=== PATIENT | female | born 1945 | race Caucasian/White ===

== ENCOUNTER 2017-02-23 13:32 | Inpatient (IN) | payer OTHER ==
[~2017-02-23] VITALS: Ht 157.5 cm; Wt 61.4 kg
[~2017-02-23 13:32] MED LIST: ATOR-24 PO; ATV5X PO; CHOL1TAB2 PO; CRF1 PO; FRC PO; LAMO100T16 PO; METR0.7514 PV
[2017-02-23] MEDS ORDERED: RISP2TAB21 PO (14:28)
[2017-02-23] MEDS ORDERED: ALBUT/IPRATROP 3MG/0.5MG NEB 3 ML VIAL INH STA (15:06)
--- NOTE | 2017-02-23 15:11 | EMERGENCY ROOM VISIT NOTE ---
History First contact with patient: 14:57 Chief Complaint: COUGH Stated Complaint: COUGHING UP BLOOD Nursing Triage Summary: Pt states dx with bronchitis last Tue., placed on mucinex, prednisone and doxy. Today started to cough up dark brown with blood. Pt states, "I cough so hard I feel like I'm going to pass out." History of Present Illness The patient is a 71 year old female who presents to the Emergency Room via private vehicle accompanied by her with complaints of "coughing up blood ". The patient states that she has had a persistent cough for the past 3 weeks. She states that it is becoming productive, and was seen Tuesday by her family doctor and diagnosed with bronchitis. She states that she was given Mucinex, doxycycline and prednisone and has been taking these as prescribed. She notes that her cough has diminished slightly, but now she is coughing up a brown like mucus with some streaks of blood. She states she called her family doctor and they referred her here for further evaluation and management. She states that she feels as though she can't take a deep breath when she coughs, and now has a burning/pain sensation in the substernal region with her cough. Review of Systems A complete 10-point Review of Systems was discussed with the patient, with pertinent positives and negatives listed in the History of Present Illness. All remaining Review of Systems questions can be considered negative unless otherwise specified. Past Medical/Surgical History Medical Problems: (1) Alonso's Esophagus (2) Bladder prolapse (3) Depressive Disorder Nec (4) Esophageal Reflux (5) Esophageal Stricture (6) Headache (7) Hemoptysis (8) Hypercholesteremia (9) Migraine Unspecified W/O Intractable Migraine (10) Mood disorder (11) Mood disorder (12) Viral URI (13) Von Willebrand disease Surgical Problems: (1) S/P hysterectomy Family History Cancer Diabetes mellitus Heart disease Hypertension Kidney disease Kidney stones Social History Smoking Status: Never Smoker Alcohol Use: occasionally Marital Status: Housing Status: lives with significant other Occupation Status: retired Current/Historical Medications Scheduled Acetamin/Butalbital/Caffeine (Fioricet), 1 TAB PO PRN UD Atorvastatin (Atorvastatin Calcium), 40 MG PO DAILY Doxycycline Hyclate (Vibramycin), 100 MG PO BID Guaifenesin-Codeine (Codeine/Guaifenesin 100-10 mg/5Ml), 1 DOSE PO PRN UD Mirtazapine (Remeron), 30 MG PO HS Pantoprazole Sodium (Protonix), 40 MG PO BID Prednisone (Prednisone), 10 MG PO TAPER UD Risperidone (Risperdal), 2 MG PO HS Sucralfate (Sucralfate), 1 GM PO ACHS Sumatriptan Succinate (Imitrex), 25 MG PO PRN Scheduled PRN Cyclobenzaprine Hcl (Flexeril), 10 MG PO HS PRN for Pain Physical Exam Vital Signs Date Time Temp Pulse Resp B/P (MAP) Pulse Ox O2 Delivery O2 Flow Rate FiO2 02/23/17 19:04 70 22 145/87 98 Room Air 02/23/17 17:50 71 16 128/77 97 Room Air 02/23/17 16:12 72 02/23/17 15:40 76 15 127/86 97 02/23/17 13:46 36.7 74 18 142/75 95 Room Air Physical Exam VITAL SIGNS - Vital signs and nursing notes were reviewed. Stable. GENERAL -71-year-old female appearing her stated age who is in no acute distress. Communicates well with provider and answers questions appropriately. SKIN - Without rashes. No petechial rashes. HEAD - NC/AT. EYES - PERRL with EOMI bilaterally. EARS - No deformities of external structures noted on gross examination bilaterally. NOSE - Midline and without cyanosis. No epistaxis or purulent drainage noted. Septum midline without deviation or septal hematoma noted. MOUTH/OROPHARYNX - Without perioral cyanosis. NECK - Neck with FROM. Supple to palpation. LUNGS - Chest wall symmetric without accessory muscle use, intercostals retractions, or central cyanosis. Normal vesicular breath sounds CTA B/L. No wheezes, rales, or rhonchi appreciated. CARDIAC - RRR with S1/S2. No murmur, rubs, or gallops appreciated. ABDOMEN - Abdominal contour normal without pulsations or visible masses. BS normoactive all four quadrants. No tenderness, palpable masses, hepatosplenomegaly, or ascites noted. EXTREMITIES - No clubbing or peripheral cyanosis. No pretibial edema present. + 5/5 strength noted in UE/LE bilaterally. NEUROLOGIC - Cranial nerves II through XII grossly intact. Sensory intact to light touch throughout. Patellar reflexes +2/4. PSYCH - A&O, and cooperates fully with examiner. Pt is very pleasant and interacts well with examiner. Medical Decision & Procedures ER Provider Diagnostic Interpretation: CHEST 2 VIEWS ROUTINE CLINICAL HISTORY: Cough dyspnea COMPARISON STUDY: 06/27/2014 FINDINGS: The bones soft tissues and hemidiaphragms are normal. The cardiomediastinal silhouette is normal. The lungs are clear. The pulmonary vasculature is normal. IMPRESSION: Negative chest. The above report was generated using voice recognition software. It may contain grammatical, syntax or spelling errors. Electronically signed by: Sarmad Castellanos M.D. 02/23/2017 5:13 PM Dictated Date/Time: 02/23/2017 5:12 PM (CHEST FOR PE) ANGIO WITH CLINICAL HISTORY: 71 years-old Female presenting with hemoptysis, anterior chest pain. TECHNIQUE: Multidetector CT angiography of the chest was performed after administration of intravenous contrast. 3-D volumetric and/or maximum intensity projection (MIP) images were subsequently reconstructed for review. IV contrast: 92 mL of Optiray 320. A dose lowering technique was used consistent with the principles of ALARA (as low as reasonably achievable). COMPARISON: 12/27/2011. CT DOSE (mGy.cm): The estimated cumulative dose is 300.64 mGycm. FINDINGS: [place] topogram: Unremarkable. Pulmonary vasculature: The study is adequate for assessment of the pulmonary vascular tree. No filling defect within the pulmonary arteries to suggest embolus. Main pulmonary artery is not enlarged. No flattening of the interventricular septum. No intracardiac intracardiac filling defect. No reflux of contrast into the hepatic veins. Remaining chest: On soft tissue windows, normal thyroid and thoracic inlet. No axillary, supraclavicular, hilar, or mediastinal lymphadenopathy. Normal aorta. Normal heart size. No pericardial or pleural effusion. Small hiatal hernia. On lung windows, minimal dependent changes likely atelectasis. Focal subtle groundglass opacity in a peribronchovascular distribution noted in the superior lingula (for example series 4 image 156). Airways patent. On bone windows, normal osseous structures. IMPRESSION: 1. No evidence of pulmonary embolus. 2. Subtle groundglass opacity in a peribronchovascular distribution in the lingula concerning for an infectious etiology/early pneumonia. Electronically signed by: Ricci Harrison M.D. 02/23/2017 6:32 PM Dictated Date/Time: 02/23/2017 6:26 PM Laboratory Results 02/23/17 15:20 Red Blood Count 4.96, Mean Corpuscular Volume 87.9, Mean Corpuscular Hemoglobin 30.0, Mean Corpuscular Hemoglobin Concent 34.2, Mean Platelet Volume 10.5, Neutrophils (%) (Auto) 79.9, Lymphocytes (%) (Auto) 15.0, Monocytes (%) (Auto) 3.3, Eosinophils (%) (Auto) 0.1, Basophils (%) (Auto) 0.2, Neutrophils # (Auto) 7.96, Lymphocytes # (Auto) 1.49, Monocytes # (Auto) 0.33, Eosinophils # (Auto) 0.01, Basophils # (Auto) 0.02 02/23/17 15:20 Test 02/23/17 15:20 White Blood Count 9.96 K/uL (4.8-10.8) Red Blood Count 4.96 M/uL (4.2-5.4) Hemoglobin 14.9 g/dL (12.0-16.0) Hematocrit 43.6 % (37-47) Mean Corpuscular Volume 87.9 fL (80-100) Mean Corpuscular Hemoglobin 30.0 pg (25-34) Mean Corpuscular Hemoglobin Concent 34.2 g/dl (32-36) Platelet Count 256 K/uL (130-400) Mean Platelet Volume 10.5 fL (7.4-10.4) Neutrophils (%) (Auto) 79.9 % Lymphocytes (%) (Auto) 15.0 % Monocytes (%) (Auto) 3.3 % Eosinophils (%) (Auto) 0.1 % Basophils (%) (Auto) 0.2 % Neutrophils # (Auto) 7.96 K/uL (1.4-6.5) Lymphocytes # (Auto) 1.49 K/uL (1.2-3.4) Monocytes # (Auto) 0.33 K/uL (0.11-0.59) Eosinophils # (Auto) 0.01 K/uL (0-0.5) Basophils # (Auto) 0.02 K/uL (0-0.2) RDW Standard Deviation 41.7 fL (36.4-46.3) RDW Coefficient of Variation 13.0 % (11.5-14.5) Immature Granulocyte % (Auto) 1.5 % Immature Granulocyte # (Auto) 0.15 K/uL (0.00-0.02) Prothrombin Time 10.6 SECONDS (9.0-12.0) Prothromb Time International Ratio 1.0 (0.9-1.1) Activated Partial Thromboplast Time 21.0 SECONDS (21.0-31.0) Partial Thromboplastin Ratio 0.8 Anion Gap 11.0 mmol/L (3-11) Est Creatinine Clear Calc Drug Dose 45.8 ml/min Estimated GFR () 66.6 Estimated GFR (Non- 57.4 BUN/Creatinine Ratio 26.0 (10-20) Calcium Level 9.8 mg/dl (8.5-10.1) Magnesium Level 2.1 mg/dl (1.8-2.4) Total Bilirubin 0.3 mg/dl (0.2-1) Aspartate Amino Transf (AST/SGOT) 18 U/L (15-37) Alanine Aminotransferase (ALT/SGPT) 43 U/L (12-78) Alkaline Phosphatase 86 U/L (45-117) Total Creatine Kinase 79 U/L (26-192) Creatine Kinase MB 2.0 ng/ml (0.5-3.6) Creatine Kinase MB Ratio 2.5 (0-3.0) Troponin I < 0.015 ng/ml (0-0.045) Total Protein 8.1 gm/dl (6.4-8.2) Albumin 4.3 gm/dl (3.4-5.0) Globulin 3.8 gm/dl (2.5-4.0) Albumin/Globulin Ratio 1.1 (0.9-2) Thyroid Stimulating Hormone (TSH) 0.692 uIu/ml (0.300-4.500) Medications Administered Medications (Trade) Dose Ordered Sig/[place]andler Route Start Time Stop Time Status Last Admin Dose Admin Albuterol/ Ipratropium (Duoneb) 3 ml NOW STAT INH 02/23/17 15:06 02/23/17 15:09 DC 02/23/17 15:54 3 ML Azithromycin 500 mg/Dextrose 255 ml @ 125 mls/hr NOW STAT IV 02/23/17 18:50 02/23/17 20:52 DC 02/23/17 19:32 125 MLS/HR Ceftriaxone Sodium (Rocephin Inj) 1 gm NOW STAT IV 02/23/17 18:50 02/23/17 18:52 DC 02/23/17 19:05 1 GM Acetaminophen/ Butalbital/ Caffeine (Fioricet Tab) 1 tab NOW STAT PO 02/23/17 19:35 02/23/17 19:36 DC 02/23/17 19:56 1 TAB Medical Decision Patient was seen and evaluated as above. She presents to us today with coughing up blood, and burning in the anterior chest. Bedside EKG is normal sinus rhythm, and was similar when compared with previous EKGs. Troponin was negative. Two-view chest is unremarkable. She was given a DuoNeb and was feeling better. No leukocytosis or anemia. Coags unremarkable. Patient's electrolytes are okay. BUN is high at 26. This is concerning in the setting of pneumonia. She is also over the age of 67. I did elect to obtain a CT scan of the patient's chest, secondary to her complaint of chronic cough for the past 3 weeks. This was obtained and revealed concerning [place] for pneumonia. Because the patient's age, high BUN, and felt outpatient on doxycycline with prednisone and Mucinex I do believe that inpatient management is warranted. Case was discussed with the attending physician, who also personally evaluated the patient. I then discussed the case with the hospitalist. Decision was made to give 1 g of Rocephin and 500 mg of azithromycin. Please refer to further documentation regarding the patient's stay. In evaluation treatment this patient following differential diagnoses were entertained: Pneumonia, influenza, PE, OR, among others. Medication Reconcilliation Current Medication List: was personally reviewed by al Blood Pressure Screening Patient's blood pressure: Elevated blood pressure Blood pressure disposition: Elevated BP felt to be situational Impression Primary Impression: Pneumonia Departure Information Dispostion Admitted as an inpatient Condition FAIR Referrals Remedios Kohli D.O. (PCP) Patient Instructions My [facility]
[2017-02-23] MEDS ORDERED: FRCT/ PO (15:22)
[2017-02-23] MEDS ORDERED: SUCR1TAB PO (15:22)
[2017-02-23] MEDS ORDERED: PRED10TA PO (15:22)
[2017-02-23] MEDS ORDERED: GUAI1SOL5 PO (15:22)
[2017-02-23] MEDS ORDERED: LPT40 PO (15:22)
[2017-02-23] MEDS ORDERED: MIRT30TA3 PO (15:22)
[2017-02-23] MEDS ORDERED: DOXY100C2 PO (15:22)
[2017-02-23 15:37] LABS: BASO % 0.2 %; BASO ABS # 0.02 K/uL (0-0.2); COMPLETE YES; EOS % 0.1 %; HEMATOCRIT 43.6 % (37-47); IG% 1.5 %; LYMPH ABS # 1.49 K/uL (1.2-3.4); MEAN CELL VOLUME 87.9 fL (80-100); MEAN CORPUSCULAR HGB CONC 34.2 g/dl (32-36); MEAN PLATELET VOLUME 10.5 fL (7.4-10.4); MONO % 3.3 %; NEUT % 79.9 %; PLATELET COUNT 256 K/uL (130-400); RED BLOOD COUNT 4.96 M/uL (4.2-5.4); WHITE BLOOD COUNT 9.96 K/uL (4.8-10.8)
[2017-02-23 15:54] LABS: ALT/SGPT 43 U/L (12-78); BLOOD UREA NITROGEN 26 mg/dl (7-18); CALCIUM 9.8 mg/dl (8.5-10.1); CARBON DIOXIDE 24 mmol/L (21-32); CHLORIDE 106 mmol/L (98-107); GLUCOSE 100 mg/dl (70-99); MAGNESIUM 2.1 mg/dl (1.8-2.4); POTASSIUM 3.5 mmol/L (3.5-5.1); SODIUM 141 mmol/L (136-145)
[2017-02-23 15:57] LABS: PARTIAL THROMBOPLASTIN RATIO 0.8; PROTHROMBIN TIME (PATIENT) 10.6 SECONDS (9.0-12.0)
[2017-02-23 16:04] LABS: ALB/GLOB RATIO 1.1 (0.9-2); ALKALINE PHOSPHATASE 86 U/L (45-117); AST/SGOT 18 U/L (15-37); CKMB/CK RATIO 2.5 (0-3.0); THYROID STIMULATING HORMONE 0.692 uIu/ml (0.300-4.500)
--- NOTE | 2017-02-23 16:14 | EMERGENCY ROOM VISIT NOTE ---
ED Visit Note First contact with patient: 14:57 HPI: cough and ?hemtoptysis with blood tinged sputum. PE: AFVSS, NAD NC/AT RRR, no murmurs Scant scattered wheezes. Abd soft NT/ND Ext: no edema, erythema Neuro: grossly intact Plan: CT shows "subtle groundglass opacity in a peribronchovascular distribution in the lingula concerning for an infectious etiology/early pneumonia." Admit. Likely pulm consultation. I reviewed the patient's past medical history, medications, and visit nursing notes. I discussed the case with the physician physician office assistant, examined the patient, and agree with the findings and plan as documented in the physician assistants note.
--- NOTE | 2017-02-23 17:14 | DIAGNOSTIC IMAGING REPORT ---
CHEST 2 VIEWS ROUTINE CLINICAL HISTORY: Cough dyspnea COMPARISON STUDY: 06/27/2014 FINDINGS: The bones soft tissues and hemidiaphragms are normal. The cardiomediastinal silhouette is normal. The lungs are clear. The pulmonary vasculature is normal. IMPRESSION: Negative chest. The above report was generated using voice recognition software. It may contain grammatical, syntax or spelling errors. Electronically signed by: Sarmad Castellanos M.D. 02/23/2017 5:13 PM Dictated Date/Time: 02/23/2017 5:12 PM
[2017-02-23] MEDS ORDERED: OPTIRAY 320 IV PRN (17:30)
[2017-02-23] MEDS ORDERED: SUMA25TA12 PO (18:22)
--- NOTE | 2017-02-23 18:34 | DIAGNOSTIC IMAGING REPORT ---
(CHEST FOR PE) ANGIO WITH CLINICAL HISTORY: 71 years-old Female presenting with hemoptysis, anterior chest pain. TECHNIQUE: Multidetector CT angiography of the chest was performed after administration of intravenous contrast. 3-D volumetric and/or maximum intensity projection (MIP) images were subsequently reconstructed for review. IV contrast: 92 mL of Optiray 320. A dose lowering technique was used consistent with the principles of ALARA (as low as reasonably achievable). COMPARISON: 12/27/2011. CT DOSE (mGy.cm): The estimated cumulative dose is 300.64 mGycm. FINDINGS: [employer] topogram: Unremarkable. Pulmonary vasculature: The study is adequate for assessment of the pulmonary vascular tree. No filling defect within the pulmonary arteries to suggest embolus. Main pulmonary artery is not enlarged. No flattening of the interventricular septum. No intracardiac intracardiac filling defect. No reflux of contrast into the hepatic veins. Remaining chest: On soft tissue windows, normal thyroid and thoracic inlet. No axillary, supraclavicular, hilar, or mediastinal lymphadenopathy. Normal aorta. Normal heart size. No pericardial or pleural effusion. Small hiatal hernia. On lung windows, minimal dependent changes likely atelectasis. Focal subtle groundglass opacity in a peribronchovascular distribution noted in the superior lingula (for example series 4 image 156). Airways patent. On bone windows, normal osseous structures. IMPRESSION: 1. No evidence of pulmonary embolus. 2. Subtle groundglass opacity in a peribronchovascular distribution in the lingula concerning for an infectious etiology/early pneumonia. Electronically signed by: Ricci Harrison M.D. 02/23/2017 6:32 PM Dictated Date/Time: 02/23/2017 6:26 PM
[2017-02-23] MEDS ORDERED: AZITHROMYCIN IV 500 MG in DEXTROSE 5% 250ML 250 ML IV STA (18:50)
[2017-02-23] MEDS ORDERED: CEFTRIAXONE SOD INJ 1 GM ADDVIAL IV STA (18:50)
[2017-02-23] MEDS ORDERED: AZITHROMYCIN 250 MG TAB ONE (19:00)
[2017-02-23] MEDS ORDERED: BUTALBITAL/ACETAMIN/CAFFEINE TAB PO STA (19:35)
[2017-02-23 20:39] LABS: HEMATOCRIT 38.7 % (37-47)
[2017-02-23] MEDS ORDERED: BENZONATATE 100MG CAP PO PRN (20:57)
[2017-02-23] MEDS ORDERED: RISPERIDONE 2 MG TAB PO SCH (21:00)
[2017-02-23] MEDS ORDERED: KETOROLAC TROMETHAMINE 15 MG/ML VIAL IV. PRN (21:00)
[2017-02-23] MEDS ORDERED: MIRTAZAPINE TAB 15 MG TAB PO SCH (21:00)
[2017-02-23] MEDS ORDERED: ONDANSETRON INJ 2 MG/ML 2 ML VIAL IV PRN (21:00)
[2017-02-23] MEDS ORDERED: LEVALBUTEROL/IPRATROPIUM NEB INH PRN (21:00)
[2017-02-23] MEDS ORDERED: ACETAMINOPHEN 325 MG TAB PO PRN (21:00)
[2017-02-23 21:07] VITALS: BP 147/92; PULSE 63; TEMP 36.7; O2SAT 99; Ht 157.5 cm; Wt 61.4 kg
[2017-02-23] MEDS ORDERED: CYCL10TA6 PO (21:16)
[2017-02-23] MEDS ORDERED: LEVALBUTEROL 1.25MG/0.5ML NEB INH STA (21:24)
[2017-02-23] MEDS ORDERED: IPRATROPIUM BROMIDE NEB SOLN 0.02% 2.5 ML VIAL INH STA (21:24)
[2017-02-23] MEDS ORDERED: LACTATED RINGER'S 1000ML 1,000 ML IV ONE (21:30)
[2017-02-23] MEDS ORDERED: METHYLPREDNISOLONE IV 40 MG in SYRINGE 0 ML IV ONE (21:30)
[2017-02-23] MEDS ORDERED: GUAIFENESIN 600 MG TABCR PO ONE (21:30)
[2017-02-23] MEDS ORDERED: LEVALBUTEROL 1.25MG/0.5ML NEB INH PRN (21:30)
[2017-02-23] MEDS ORDERED: BENZONATATE 100MG CAP PO ONE (21:30)
[2017-02-23] MEDS ORDERED: IPRATROPIUM BROMIDE NEB SOLN 0.02% 2.5 ML VIAL INH PRN (21:30)
[2017-02-23] MEDS ORDERED: DOXYCYCLINE HYCLATE 100 MG CAP PO SCH (21:30)
[2017-02-23] MEDS ORDERED: INFLUENZA ADMINISTRATION CHARGE ONE (21:45)
[2017-02-23] MEDS ORDERED: INFLUENZA VACCINE HIGH DOSE 65+ 0.5 ML SYR IM. ONE (21:45)
[2017-02-23] MEDS: PANTOprazole SOD 40 MG TAB PO SCH (21:55)
[2017-02-23] MEDS: SUCRALFATE 1 GM TAB PO SCH (21:56)
[2017-02-23] MEDS ORDERED: LORAZEPAM 0.5 MG TAB PO ONE (22:30)
[2017-02-23] MEDS ORDERED: PANT40TA PO (22:46)
[2017-02-23] MEDS ORDERED: LEVOFLOXACIN 750 MG TAB PO SCH (23:45)
[2017-02-23] MEDS ORDERED: LEVOFLOXACIN CONSULT ACTIVE PRN (23:45)
[2017-02-24] VITALS: BP 154/87; PULSE 63; TEMP 36.4; O2SAT 95
[2017-02-24 00:45] LABS: INFLUENZA A PCR Neg for Influ A (NEG); INFLUENZA B PCR Neg for Influ B (NEG)
[2017-02-24] MEDS: LEVALBUTEROL 1.25MG/0.5ML NEB INH SCH ×2 (01:42→07:01)
[2017-02-24] MEDS: IPRATROPIUM BROMIDE NEB SOLN 0.02% 2.5 ML VIAL INH SCH ×2 (01:43→07:01)
[2017-02-24 01:45] VITALS: PULSE 87; O2SAT 96
[2017-02-24] MEDS ORDERED: LEVALBUTEROL/IPRATROPIUM NEB INH SCH (03:00)
--- NOTE | 2017-02-24 05:52 | HISTORY & PHYSICAL EXAMINATION ---
DATE OF ADMISSION: 02/23/2017 PRIMARY CARE DOCTOR: Dr. Kohli. CHIEF COMPLAINT: Hemoptysis. HISTORY OF PRESENT ILLNESS: History obtained from the patient and records. Medical history is significant for anxiety, depression, GERD, history of Schatzki's ring, migraine. Recent confinement at [facility] was last 2013 for depression. In the last few weeks, the patient noted nasal congestion and cough symptoms, at some point wheezing, cough productive of junky sputum. Seen at PCP's office last week. Impression was complicated bronchitis. Patient prescribed prednisone, doxycycline and mucolytics. Some improvement in cough symptoms.. Today, the patient noted hemoptysis, mucous sputum with streaks of blood. Pleuritic chest pain w/ some shortness of breath. Denies aspiration. At the Emergency Room, the patient received ceftriaxone, azithromycin, nebs for possible pneumonia. MEDICAL HISTORY: As above SURGICAL HISTORY: She had hysterectomy, tubal ligation, tonsillectomy, adenectomy. Urologic procedures and knee surgery. HOME MEDICATIONS: Include, Fioricet, atorvastatin, Flexeril, doxycycline, Remeron, Protonix, prednisone, Risperdal , Imitrex. ALLERGIES: TO ASPIRIN. FAMILY HISTORY: There is a family history of heart disease. PERSONAL AND SOCIAL HISTORY: Nonsmoker, no chronic alcohol use. 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 REVIEW OF SYSTEMS: As per HPI, all other ROS negative. PHYSICAL EXAMINATION: VITAL SIGNS: Blood pressure was noted to be 128/70, pulse is 70, RR 18, temperature 36.8, sats 97 on room air. GENERAL: Noted to be comfortable, no respiratory distress. Looks younger for stated age. SKIN: Normal color. Dry HEENT: [place] palpebral conjunctivae. Dry mucosa. NECK: Supple. NT CHEST: Clear to auscultation. NT Cardiovascular : No JVD, Regular rate and rhythm. ABDOMEN: Soft. NT EXTREMITIES: No edema. NT NEUROLOGIC: Coherent, no gross focality. LABORATORY DATA: Hemoglobin was noted to be 14.9, hematocrit 40.6, white cell count 7.9, platelets 256. Sodium 140, potassium 3.5, chloride 106, CO2 24, BUN 26, creatinine 1, glucose was noted to be 100. Flu test was negative. IMAGING DATA: CTA showed subtle ground-glass opacity, peribronchovascular distribution in the lingula, possible early pneumonia. ASSESSMENT: 1. Hemoptysis secondary to bronchopneumonia failed outpatient treatment. Hemodynamically stable. Patient is not septic. 2. GERD, stable on medication. 3. Anxiety/mood disorder, stable on medications. PLAN: GMF Change Doxycycline to Levaquin nebs p.r.n. Solu-Medrol for 1 dose now then continue home prednisone taper. Antitussives when necessary Pulmonary consult if with recurrent hemoptysis. DVT prophylaxis. SCDs RE hemoptysis. Full code. MTDD
[2017-02-24] MEDS: SUCRALFATE 1 GM TAB PO SCH ×2 (06:34→11:16)
[2017-02-24 07:02] VITALS: PULSE 64; O2SAT 98
[2017-02-24 07:08] LABS: BASO % 0.1 %; BASO ABS # 0.01 K/uL (0-0.2); COMPLETE YES; HEMATOCRIT 39.3 % (37-47); IG% 1.3 %; LYMPH % 13.4 %; LYMPH ABS # 1.13 K/uL (1.2-3.4); MEAN CELL VOLUME 89.1 fL (80-100); MEAN CORPUSCULAR HEMOGLOBIN 29.5 pg (25-34); MEAN CORPUSCULAR HGB CONC 33.1 g/dl (32-36); MEAN PLATELET VOLUME 10.3 fL (7.4-10.4); MONO % 5.4 %; NEUT % 79.8 %; PLATELET COUNT 240 K/uL (130-400); RED BLOOD COUNT 4.41 M/uL (4.2-5.4); WHITE BLOOD COUNT 8.45 K/uL (4.8-10.8)
[2017-02-24 07:34] LABS: CREATININE 0.85 mg/dl (0.60-1.20)
[2017-02-24 07:44] VITALS: BP 120/76; PULSE 65; TEMP 36.5; O2SAT 100
[2017-02-24] MEDS ORDERED: ATORVASTATIN 40 MG TAB PO SCH (08:00)
[2017-02-24] MEDS: PANTOprazole SOD 40 MG TAB PO SCH (08:32)
[2017-02-24] MEDS ORDERED: GUAIFENESIN 600 MG TABCR PO SCH (09:00)
--- NOTE | 2017-02-24 09:00 | Clinical Documentation Query ---
Dr. RUELAS PETER : CLINICAL DOCUMENTATION QUERY Patient is a 71 year old female admitted for evaluation and treatment of hemoptysis. Failed outpatient treatment with Doxycycline and mucolytics. Therapeutic regimen altered to Levaquin, Solumedrol x 1, PRN nebs and antitussives. As appropriate, consider explicit documentation of the potential type(s) of pneumonia that antibiotic choice is based upon as this affects DRG assignment. Thank you. In your clinical opinion is this patient being managed for: ( ) Possible gram negative pneumonia ( ) Not Agree ( ) Other explanation of clinical findings (Please Explain) ( ) Unable to determine (Please Define) ( ) Need to Discuss The medical record reflects the following clinical findings, treatment, and risk factors. Clinical Indicators: As above Treatment: Therapeutic regimen altered to Levaquin, Solumedrol x 1, PRN nebs and antitussives Risk Factors: Recent antibiotic use Please clarify and document your clinical opinion in the progress notes and discharge summary. Terms such as "probable", "suspected", "likely", "questionable", "possible", or "still to be ruled out" are acceptable. IF IN AGREEMENT, YOU MUST DOCUMENT ABOVE DIAGNOSTIC STATEMENT IN DAILY PROGRESS NOTES AND DISCHARGE SUMMARY. This document is not part of the patient's record. Thank You, Eitan Liriano, IMANI [phone]
[2017-02-24 12:01] LABS: HEMATOCRIT 39.8 % (37-47)
[2017-02-24] MEDS ORDERED: LVQ750 PO (12:46)
[2017-02-24] MEDS ORDERED: LCTX PO (12:46)
--- NOTE | 2017-02-24 12:48 | Discharge Instructions ---
Discharge Instructions Date of Service Feb 24, 2017. Admission Reason for Admission: Hemoptysis Discharge Discharge Diagnosis / Problem: PNEUMONIA. Discharge Goals Goal(s): Decrease discomfort, Improve function Activity Recommendations Activity Limitations: resume your previous activity . Instructions / Follow-Up Instructions / Follow-Up FOLLOWUP WITH FAMILY DOCTOR Remedios Salomon ON Feb AT 10:55AM. REPORT TO ER FOR ANY WORSENING COUGH OR ANY CHANGE IN MEDICAL CONDITION Current Hospital Diet Patient's current hospital diet: Regular Diet Discharge Diet Recommended Diet: Regular Diet Pending Studies Studies pending at discharge: no Medical Emergencies . Who to Call and When: Medical Emergencies: If at any time you feel your situation is an emergency, please call 911 immediately. . Non-Emergent Contact Non-Emergency issues call your: Primary Care Provider . . "Provider Documentation" section prepared by Andres Humphrey. . VTE Core Measure Inpt VTE Proph given/why not?: SCD's
[2017-02-24 13:06] VITALS: BP 120/76; PULSE 65; TEMP 36.5; O2SAT 100
--- NOTE | 2017-02-24 20:12 | Progress Note ---
Internal Med Progress Note Date of Service: Feb 24, 2017. Provider Documentation: SUBJECTIVE: resting comfortably says feeling much better and want to go home cough much improved and has some yellow sputum and no blood in sputum anymore afebrile no sob or chest pain OBJECTIVE: Vital Signs-as noted below Exam: General-alert and awake. not in distress ENT-normal hearing Neck-no neck masses supple Lungs-cta b/l no wheezing or crackles Heart-s1 and s2 heard regular rate and rhythm no murmurs Abdomen-soft bowel sounds present non tender no distension Extremities-no erythema no edema Neuro-alert and awake moves extremities Lab data as noted below. ASSESSMENT & PLAN: 1. Hemoptysis secondary to bronchopneumonia failed outpatient treatment. started on Levaquin improving want to go home d/trisha on po Levaquin f/u with pcp. 2. GERD, stable on medication. 3. Anxiety/mood disorder, stable on medications discharged home Vital Signs: Date Time Temp Pulse Resp B/P (MAP) Pulse Ox O2 Delivery O2 Flow Rate FiO2 02/24/17 13:06 36.5 65 18 100 Room Air 02/24/17 08:30 Room Air 02/24/17 07:44 36.5 65 18 120/76 (91) 100 02/24/17 07:02 64 16 98 02/24/17 01:45 87 16 96 02/24/17 00:00 36.4 63 20 154/87 (109) 95 Room Air 02/24/17 00:00 Room Air 02/23/17 21:07 36.7 63 16 147/92 99 Room Air 02/23/17 20:36 67 23 152/78 95 Room Air 02/23/17 20:17 72 Lab Results: Results Past 24 Hours Test 02/23/17 20:33 02/23/17 22:00 02/24/17 06:52 02/24/17 11:51 Range/Units Hemoglobin 12.8 13.0 13.1 12.0-16.0 g/dL Hematocrit 38.7 39.3 39.8 37-47 % Influenza Type A (RT-PCR) Neg for Influ A NEG Influenza Type A Antigen Neg for Influ A NEG Influenza Type B Antigen Neg for Influ B NEG Influenza Type B (RT-PCR) Neg for Influ B NEG White Blood Count 8.45 4.8-10.8 K/uL Red Blood Count 4.41 4.2-5.4 M/uL Mean Corpuscular Volume 89.1 80-100 fL Mean Corpuscular Hemoglobin 29.5 25-34 pg Mean Corpuscular Hemoglobin Concent 33.1 32-36 g/dl Platelet Count 240 130-400 K/uL Mean Platelet Volume 10.3 7.4-10.4 fL Neutrophils (%) (Auto) 79.8 % Lymphocytes (%) (Auto) 13.4 % Monocytes (%) (Auto) 5.4 % Eosinophils (%) (Auto) 0.0 % Basophils (%) (Auto) 0.1 % Neutrophils # (Auto) 6.74 1.4-6.5 K/uL Lymphocytes # (Auto) 1.13 1.2-3.4 K/uL Monocytes # (Auto) 0.46 0.11-0.59 K/uL Eosinophils # (Auto) 0.00 0-0.5 K/uL Basophils # (Auto) 0.01 0-0.2 K/uL RDW Standard Deviation 42.8 36.4-46.3 fL RDW Coefficient of Variation 13.3 11.5-14.5 % Immature Granulocyte % (Auto) 1.3 % Immature Granulocyte # (Auto) 0.11 0.00-0.02 K/uL Creatinine 0.85 0.60-1.20 mg/dl Est Creatinine Clear Calc Drug Dose 53.9 ml/min Estimated GFR () 81.0 Estimated GFR (Non- 69.9
--- NOTE | 2017-02-24 20:21 | Discharge Summary ---
Discharge Summary Date of Service Feb 24, 2017. Discharge Summary Admission Date: Feb 23, 2017 at 19:48 Discharge Date: Feb 24, 2017 Discharge Disposition: Home Principal Diagnosis: PNEUMONIA Secondary Diagnoses/Problems: anxiety, depression, GERD, history of Schatzki's ring, migraine. Procedures: CTA CHEST: 1. No evidence of pulmonary embolus. 2. Subtle groundglass opacity in a peribronchovascular distribution in the lingula concerning for an infectious etiology/early pneumonia. Medication Reconciliation New Medications: Lactobacillus Acidophilus (Lactinex) Tab 2 TAB PO BID for 10 Days, TAB Levofloxacin (Levofloxacin) 750 Mg Tab 750 MG PO DAILY, #7 TAB Continued Medications: Acetamin/Butalbital/Caffeine (Fioricet) 1 Ea Tab 1 TAB PO PRN UD, TAB Atorvastatin (Atorvastatin Calcium) 40 Mg Tab 40 MG PO DAILY Cyclobenzaprine Hcl (Flexeril) 10 Mg Tab 10 MG PO HS PRN for Pain, #21 TAB PRN Guaifenesin-Codeine (Codeine/Guaifenesin 100-10 mg/5Ml) 1 Divya Divya 1 DOSE PO PRN UD Mirtazapine (Remeron) 30 Mg Tab 30 MG PO HS Pantoprazole Sodium (Protonix) 40 Mg Tab 40 MG PO BID, #30 TAB Prednisone (Prednisone) 10 Mg Tab 10 MG PO TAPER UD Risperidone (Risperdal) 2 Mg Tab 2 MG PO HS, TAB Sucralfate (Sucralfate) 1 Gm Tab 1 GM PO ACHS Sumatriptan Succinate (Imitrex) 25 Mg Tab 25 MG PO PRN, 0 Refills Discontinued Medications: Doxycycline Hyclate (Vibramycin) 100 Mg Cap 100 MG PO BID for 10 Days Admission Information HPI (per Admitting provider): History obtained from the patient and records. Medical history is significant for anxiety, depression, GERD, history of Schatzki's ring, migraine. Recent confinement at [facility] was last 2013 for depression. In the last few weeks, the patient noted nasal congestion and cough symptoms, at some point wheezing, cough productive of junky sputum. Seen at PCP's office last week. Impression was complicated bronchitis. Patient prescribed prednisone, doxycycline and mucolytics. Some improvement in cough symptoms.. Today, the patient noted hemoptysis, mucous sputum with streaks of blood. Pleuritic chest pain w/ some shortness of breath. Denies aspiration. At the Emergency Room, the patient received ceftriaxone, azithromycin, nebs for possible pneumonia. Physical Exam (per Admitting): VITAL SIGNS: Blood pressure was noted to be 128/70, pulse is 70, RR 18, temperature 36.8, sats 97 on room air. GENERAL: Noted to be comfortable, no respiratory distress. Looks younger for stated age. SKIN: Normal color. Dry HEENT: Howell palpebral conjunctivae. Dry mucosa. NECK: Supple. NT CHEST: Clear to auscultation. NT Cardiovascular : No JVD, Regular rate and rhythm. ABDOMEN: Soft. NT EXTREMITIES: No edema. NT NEUROLOGIC: Coherent, no gross focality. Hospital Course 1. Hemoptysis secondary to bronchopneumonia failed outpatient treatment. started on Levaquin improving want to go home d/trisha on po Levaquin f/u with pcp. 2. GERD, stable on medication. 3. Anxiety/mood disorder, stable on medications discharged home Total time spent on discharge = 35MINUTES This includes examination of the patient, discharge planning, medication reconciliation, and communication with other providers. Discharge Instructions Discharge Instructions Date of Service Feb 24, 2017. Admission Reason for Admission: Hemoptysis Discharge Discharge Diagnosis / Problem: PNEUMONIA. Discharge Goals Goal(s): Decrease discomfort, Improve function Activity Recommendations Activity Limitations: resume your previous activity . Instructions / Follow-Up Instructions / Follow-Up FOLLOWUP WITH FAMILY DOCTOR Remedios Salomon ON Feb AT 10:55AM. REPORT TO ER FOR ANY WORSENING COUGH OR ANY CHANGE IN MEDICAL CONDITION Current Hospital Diet Patient's current hospital diet: Regular Diet Discharge Diet Recommended Diet: Regular Diet Pending Studies Studies pending at discharge: no Medical Emergencies . Who to Call and When: Medical Emergencies: If at any time you feel your situation is an emergency, please call 911 immediately. . Non-Emergent Contact Non-Emergency issues call your: Primary Care Provider . . "Provider Documentation" section prepared by Andres Humphrey. . VTE Core Measure Inpt VTE Proph given/why not?: SCD's
[2017-02-24] MEDS ORDERED: LEVOFLOXACIN 750 MG TAB PO SCH (21:00)
== END 2017-02-24 13:51 | disposition home or self-care (01) | DRG 194 ==
LOC: C.EDB 13:33 → C.4E 19:48 → ENRESERV 20:26
PROVIDERS: ADMIT Internal Medicine; ATTEND Internal Medicine
DX: J18.0 Bronchopneumonia, unspecified organism (principal); R04.2 Hemoptysis; K21.9 Gastro-esophageal reflux disease without esophagitis; E78.00 Pure hypercholesterolemia, unspecified; F32.9 Major depressive disorder, single episode, unspecified; F41.9 Anxiety disorder, unspecified; Z90.710 Acquired absence of both cervix and uterus; Z80.9 Family history of malignant neoplasm, unspecified; Z83.3 Family history of diabetes mellitus; Z82.49 Family history of ischemic heart disease and other diseases of the circulatory system

== ENCOUNTER → 2017-09-30 | Outpatient (CLI) | payer OTHER ==
[~2017-09-30] MED LIST changes: -ATOR-24 PO; -ATV5X PO; -CHOL1TAB2 PO; -CRF1 PO; +CYCL10TA6 PO; -FRC PO; +FRCT/ PO; +GUAI1SOL5 PO; -LAMO100T16 PO; +LPT40 PO; +LVQ750 PO; -METR0.7514 PV; +MIRT30TA3 PO; +PANT40TA PO; +PRED10TA PO; +RISP2TAB21 PO; +SUCR1TAB PO; +SUMA25TA12 PO
--- NOTE | 2017-09-30 11:16 | DIAGNOSTIC IMAGING REPORT ---
GI SERIES W/AIR ROUTINE CLINICAL HISTORY: HERNIAthere is esophagus COMPARISON STUDY: None FLUOROSCOPY TIME: 1.7 minutes. FINDINGS: Patient initiates the swallowing function well. No evidence for aspiration. Esophagus is normal in course and caliber. Moderate esophageal spasm/air debility There is a hiatal hernia, variable in size at various times during the examination.. This is simple in configuration. There is moderate gastroesophageal reflux. Size and configuration stomach are normal. Duodenal bulb fills well and is negative for ulceration. IMPRESSION: 1. Moderate esophageal spasm/irritability. 2. Variable size simple hiatal hernia with moderate gastroesophageal reflux. 3. Remainder the study is negative. The above report was generated using voice recognition software. It may contain grammatical, syntax or spelling errors. Electronically signed by: Sarmad Castellanos M.D. 09/30/2017 11:15 AM Dictated Date/Time: 09/30/2017 11:13 AM
== END | disposition home or self-care (01) ==
LOC: C.RAD 10:33
PROVIDERS: ATTEND Surgery
DX: K22.70 Barrett's esophagus without dysplasia (principal)

== ENCOUNTER 2021-11-23 11:12 | Observation (INO) ==
--- NOTE | 2021-11-23 11:35 | Emergency Department Note ---
Impression & Plan Syncope, Acute confusion ED Provider Note NAME: SCOTTY FINN AGE: 76 SEX: F : 1945 ARRIVES VIA: Walk-In INFORMANT: Patient ED PROVIDER(S): Jaswinder Medina DO CHIEF COMPLAINT: fall HPI: Patient is a 76-year-old female with past medical history of mood disorder the presents the ER for 2 episodes of a fall last night around 6 PM. She notes she got up from the couch and does not remember what happened after this. She notes she was feeling a little lightheaded and everything went black. was downstairs about 20 seconds and notes that she was awake and talking appropriately. She then went into the kitchen and he put her on a chair. He turned his back and she fell off the chair. When he heard the thud he turned over and she was awake rolling on the ground. He denies her passing out the second time. She does not remember the second incidence either. She notes that she just feels a little fuzzy in her head. Denies any headache or change in vision. No chest pain or shortness of breath preceding or following these events. No belly pain nausea vomiting or diarrhea. She admits to pain in the right elbow and right humerus. Pain is worse in that right elbow. No other weakness or numbness. Pain is been present since the fall. Is worsened with movement and improves with rest. ROS: See above HPI for pertinent positives & negatives. A total of 10 systems reviewed and were otherwise negative. PAST MEDICAL HISTORY:See Below PAST SURGICAL HISTORY:See Below FAMILY HISTORY:See Below SOCIAL HISTORY:See Below HOME MEDICATIONS:See Below ALLERGIES:See Below VITALS:See Below PHYSICAL EXAMINATION: GENERAL: alert, well appearing, well nourished, no distress, non-toxic HEAD: normal cephalic, atraumatic EYE EXAM: normal conjunctiva, PERRL and EOM's grossly intact OROPHARYNX: no exudate, no erythema, lips, buccal mucosa, and tongue normal and mucous membranes are moist NECK: supple, no nuchal rigidity, no adenopathy, non-tender CHEST: stable to compression anteriorly and posteriorly But with tenderness throughout the right mid axillary region ribs 3 through 6 LUNGS: clear to auscultation. Normal chest wall mechanics HEART: no murmurs, S1 normal and S2 normal ABDOMEN: abdomen soft, non-tender, normo-active bowel sounds, no masses, no rebound or guarding. PELVIS: stable to compression anteriorly and posteriorly BACK: Back is symmetrical on inspection and there is no deformity, no midline tenderness, no CVA tenderness. UPPER EXTREMITIES: full active and passive range of motion of all joints without tenderness to palpation LOWER EXTREMITIES: full active and passive range of motion of all joints without tenderness to palpation NEURO EXAM: Normal sensorium, cranial nerves II-XII intact, normal speech, no gross weakness of arms, no weakness of legs. GCS: 15. No drift. [id number]-tjlo intact. MEDICAL DECISION MAKING: Patient is a 76-year-old female who presents ER for the boasting complaint. IV was established blood work was obtained.Labs show no significant leukocytosis or anemia. BMP with a slightly low calcium at 1.4. LFTs bilirubin were unremarkable. Troponin was negative. TSH was unremarkable. UA was clean. COVID was negative. X-rays show no acute fracture of the humerus and elbow. CTA of the head and neck as well as CT of the chest and cervical spine were unre markable. With the 2 episodes of syncope/confusion did discuss with hospitalist for observation. Triage Nursing notes reviewed. Limited review of prior medical records performed Vital Signs: reviewed and remarkable for no significant abnormalities Differential diagnosis: Differential diagnosis includes etiologies such as vasovagal event, infection, hypoglycemia, electrolyte abnormalities, cardiac sources, intracerebral event, toxicologic, neurologic, as well as others were entertained. ER treatment provided: See below Diagnostics interpreted by me: ECG: Sinus rhythm rate of 61 Normal axis No PVCs QTC 424 Cardiac Monitoring: An order was placed for continuous cardiac monitoring. The monitor shows a rate of 70 with sinus rhythm. Laboratory studies: As stated above and show below. Imaging studies: CT as well as angios of the head and neck and CT of the chest was negative X-rays of the arm showed no acute fractures Consultation(s): none Procedures: none Critical Care: None Past Med/Surg History Medical History Barretts esophagus Cystocele S/p repair Dyslipidemia Osteoporosis Surgical History S/P left knee arthroscopy S/P BELA (total abdominal hysterectomy) S/P tonsillectomy and adenoidectomy S/P tubal ligation Family History Father Cancer Mother Cancer Social History Smoking Status: Never smoker Hx Alcohol Use: Yes Alcohol Intake Frequency: 2-4 x/Month Preferred Language: Yoruba Feels Safe at Home: Yes Allergies Allergies Allergy/AdvReac Type Severity Reaction Status Date / Time aspirin AdvReac Intermediate Stomach Verified 04/10/21 01:08 problems and bleeding Home Meds Home Medications Medication Instructions Recorded Confirmed atorvastatin 40 mg tablet 40 mg PO HS 02/04/19 11/23/21 omeprazole 20 mg capsule,delayed 20 mg PO BIDM 02/04/19 11/23/21 release sumatriptan succinate 25 mg tablet 25 mg PO DIRECTED PRN 02/04/19 11/23/21 alprazolam 0.25 mg tablet 0.25 mg PO TID PRN 11/23/21 11/23/21 [id number]-qvbvxahm 1 tab PO Q6H PRN 11/23/21 11/23/21 50 mg-325 mg-40 mg tablet denosumab 60 mg/mL subcutaneous 60 mg SUBCUT Q6M 11/23/21 11/23/21 syringe (Prolia) epinephrine 0.3 mg/0.3 mL 0.3 mg IM UD PRN 11/23/21 11/23/21 injection, auto-injector trazodone 100 mg tablet 100 mg PO HS 11/23/21 11/23/21 Results & Data (ED) Vital Signs Vital Signs - 24 hr 11/23/21 11:14 11/23/21 12:16 11/23/21 13:03 Temperature 36.2 C L Temperature Source Oral Pulse Rate 71 71 57 L Pulse Rate from SpO2 Sensor Pulse Rhythm Regular Respiratory Rate 16 16 17 Blood Pressure 136/76 132/67 Blood Pressure Mean 96 88 Pulse Oximetry 96 96 98 Oxygen Delivery Method Room Air Sepsis Recent Fever Within 48 Hours No Sepsis New/Unexplained Change in Mental Status No Sepsis Action Taken by Nursing No Action Required 11/23/21 13:33 11/23/21 14:00 Temperature Temperature Source Pulse Rate 72 55 L Pulse Rate from SpO2 Sensor 72 56 L Pulse Rhythm Respiratory Rate 18 15 Blood Pressure 148/79 H 142/68 H Blood Pressure Mean 102 92 Pulse Oximetry 98 97 Oxygen Delivery Method Sepsis Recent Fever Within 48 Hours Sepsis New/Unexplained Change in Mental Status Sepsis Action Taken by Nursing Laboratory Data Result diagrams: 11/23/21 12:06 11/23/21 12:10 Lab Results 11/23/21 11/23/21 11/23/21 Range/Units 12:06 12:06 12:10 WBC 5.94 (4.8-10.8) K/uL RBC 4.20 (4.2-5.4) M/uL Hgb 12.9 (12.0-16.0) g/dL Hct 39.3 (37-47) % MCV 93.6 (80-100) fL MCH 30.7 (25-34) pg MCHC 32.8 (32-36) g/dL RDW Std Deviation 47.7 H (36.4-46.3) fL RDW Coeff of Carlos 13.8 (11.5-14.5) % Plt Count 214 (130-400) K/uL MPV 10.5 H (7.4-10.4) fL Immature Gran % (Auto) 0.0 % Neut % (Auto) 61.2 % Lymph % (Auto) 25.8 % [place] % (Auto) 10.8 % Eos % (Auto) 2.0 % Baso % (Auto) 0.2 % Neut # (Auto) 3.64 (1.4-6.5) K/uL Lymph # (Auto) 1.53 (1.2-3.4) K/uL [place] # (Auto) 0.64 H (0.11-0.59) K/uL Eos # (Auto) 0.12 (0-0.5) K/uL Baso # (Auto) 0.01 (0-0.2) K/uL Immature Gran # (Auto) 0.00 (0.00-0.02) K/uL Sodium 138 (136-145) mmol/L Potassium 4.6 (3.5-5.1) mmol/L Chloride 106 (98-107) mmol/L Carbon Dioxide 28 (21-32) mmol/L Anion Gap 4 (3-11) BUN 19 (6-23) mg/dl Creatinine 0.86 (0.6-1.2) mg/dl Est Cr Clr Drug Dosing 45.4 ml/min Est GFR ( Amer) 77.1 ml/min Est GFR (Non-Af Amer) 66.6 ml/min BUN/Creatinine Ratio 22.1 H (10-20) Glucose 92 (70-99(Fasting)) mg/dl Calcium 8.4 L (8.5-10.1) mg/dl Magnesium 2.1 (1.7-2.4) mg/dl Total Bilirubin 0.4 (0.2-1.0) mg/dl AST 24 (13-39) U/L ALT 24 (7-52) U/L Alkaline Phosphatase 46 (34-104) U/L Troponin I High Sens 5.3 (0-14) pg/ml Total Protein 6.3 (6.0-8.3) gm/dl Albumin 3.9 (3.4-5.0) gm/dl Globulin 2.4 L (2.5-4.0) gm/dl Albumin/Globulin Ratio 1.6 (0.9-2) TSH 1.350 (0.300-4.500) uIu/ml Urine Color Urine Appearance (Clear) Urine pH (4.5-7.5) Ur Specific Pierce (1.000-1.030) Urine Protein (Negative) Urine Glucose (UA) (Negative) Urine Ketones (Negative) Urine Blood (Negative) Urine Nitrite (Negative) Urine Bilirubin (Negative) Urine Urobilinogen (Negative) Ur Leukocyte Esterase (Negative) 11/23/21 Range/Units 14:30 WBC (4.8-10.8) K/uL RBC (4.2-5.4) M/uL Hgb (12.0-16.0) g/dL Hct (37-47) % MCV (80-100) fL MCH (25-34) pg MCHC (32-36) g/dL RDW Std Deviation (36.4-46.3) fL RDW Coeff of Carlos (11.5-14.5) % Plt Count (130-400) K/uL MPV (7.4-10.4) fL Immature Gran % (Auto) % Neut % (Auto) % Lymph % (Auto) % [place] % (Auto) % Eos % (Auto) % Baso % (Auto) % Neut # (Auto) (1.4-6.5) K/uL Lymph # (Auto) (1.2-3.4) K/uL [place] # (Auto) (0.11-0.59) K/uL Eos # (Auto) (0-0.5) K/uL Baso # (Auto) (0-0.2) K/uL Immature Gran # (Auto) (0.00-0.02) K/uL Sodium (136-145) mmol/L Potassium (3.5-5.1) mmol/L Chloride (98-107) mmol/L Carbon Dioxide (21-32) mmol/L Anion Gap (3-11) BUN (6-23) mg/dl Creatinine (0.6-1.2) mg/dl Est Cr Clr Drug Dosing ml/min Est GFR ( Amer) ml/min Est GFR (Non-Af Amer) ml/min BUN/Creatinine Ratio (10-20) Glucose (70-99(Fasting)) mg/dl Calcium (8.5-10.1) mg/dl Magnesium (1.7-2.4) mg/dl Total Bilirubin (0.2-1.0) mg/dl AST (13-39) U/L ALT (7-52) U/L Alkaline Phosphatase (34-104) U/L Troponin I High Sens (0-14) pg/ml Total Protein (6.0-8.3) gm/dl Albumin (3.4-5.0) gm/dl Globulin (2.5-4.0) gm/dl Albumin/Globulin Ratio (0.9-2) TSH (0.300-4.500) uIu/ml Urine Color Yellow Urine Appearance Clear (Clear) Urine pH 7.0 (4.5-7.5) Ur Specific Pierce 1.035 H (1.000-1.030) Urine Protein Negative (Negative) Urine Glucose (UA) Negative (Negative) Urine Ketones Negative (Negative) Urine Blood Negative (Negative) Urine Nitrite Negative (Negative) Urine Bilirubin Negative (Negative) Urine Urobilinogen Negative (Negative) Ur Leukocyte Esterase Negative (Negative) Administered Medications Discontinued Medications Sodium Chloride (Nss) 500 mls @ 999 mls/hr IV .Q31M GALA Stop: 11/23/21 12:15 Last Infusion: 11/23/21 13:00 Dose: 0 mls/hr Documented by: [id number] Admin: 11/23/21 12:11 Dose: 999 mls/hr Documented by: [id number] Acetaminophen (Ofirmev) 1,000 mg in 100 mls @ 400 mls/hr IV NOW STA Stop: 11/23/21 16:51 Last Admin: 11/23/21 17:20 Dose: 400 mls/hr Documented by: [id number] Ioversol (Optiray 320 125ml) 120 ml IV ONCE ONE Stop: 11/23/21 13:29 Last Admin: 11/23/21 13:29 Dose: 120 ml Documented by: [id number] Ondansetron HCl (Ondansetron Inj 2 Mg/Ml 2 Ml Vial) 4 mg IV NOW STA Stop: 11/23/21 16:38 Last Admin: 11/23/21 17:20 Dose: 4 mg Documented by: [id number] Imaging Data Radiologist's Impression: Cervical Spine CT 11/23/21 11:31 CT SCAN OF THE CERVICAL SPINE CLINICAL HISTORY: Syncope. Fall. COMPARISON STUDY: No priors. TECHNIQUE: CT scan of the cervical spine is performed from the skull base to the upper thoracic spine. Images are reviewed in the axial, sagittal, and coronal planes. IV contrast was not administered for this examination. A dose lowering technique was utilized adhering to the principles of ALARA. FINDINGS: Skeletal structures: The skeletal structures are osteopenic. There is no evidence of fracture or subluxation involving the cervical spine. Vertebral body height and alignment are maintained. There is straightening of the cervical lo rdosis with mild reversal centered at C4-C5. Small anterior osteophytes are seen throughout. The odontoid process and lateral masses are intact. The atlantoaxial articulation is preserved noting mild productive degenerative change. The spinous processes appear intact. There is minimal multilevel facet arthropathy. Intervertebral discs: There is moderate disc space narrowing at C4-C5, C5-C6, and C6-C7. Central canal: Posterior disc osteophyte complexes at C4-C5, C5-C6, and C6-C7 likely contribute to acquired compromise of the central canal. Soft tissues: The prevertebral and paraspinous soft tissues are within normal limits. Calvarium: The visualized calvarium at the skull base appears intact. Brain parenchyma: Partially visualized brain parenchyma at the skull base is within normal limits. Sinuses and mastoids: The visualized paranasal sinuses are clear. There is trace right mastoid effusion. The left mastoid air cells are well pneumatized. Lung apices: Clear as visualized. IMPRESSION: 1. There is no evidence of fracture or subluxation involving the cervical spine. 2. Osteopenia and spondylotic change as above. ACT 112: Negative or not required by law. Electronically signed by: Junaid Rodríguez M.D. 11/23/2021 1:42 PM Chest X-Ray 11/23/21 11:31 XR chest 1V portable CLINICAL HISTORY: fall TECHNIQUE: Single frontal radiograph of the chest was obtained. Comparison: Comparison is made to chest radiograph 04/10/2021 FINDINGS: No lines and tubes are seen. Cardiomegaly is noted. The lungs are clear. No evid ence of pleural effusion or pneumothorax. IMPRESSION: No acute chest disease. ACT 112: Negative or not required by law. Electronically signed by: Babatunde Burrell M.D. 11/23/2021 1:[address] 11/23/21 11:31 CT angio neck with con, CT angio head w con, CT head/brain wo con CLINICAL HISTORY: 76 years-old Female with dizzy. Acute dizziness with syncope COMPARISON STUDY: CT cervical spine of same day, head CT 11/22/2019 TECHNIQUE: Following the IV administration of 120 mL of Optiray, CT angiogram of the head and neck was performed from the aortic arch to the skull base. Images are reviewed in the axial, sagittal, and coronal planes. 3-D MIPS images are created and assessed. IV contrast was administered without complication. All measurements were calculated based on NASCET criteria. Noncontrast head CT was also obtained. A dose lowering technique was utilized adhering to the principles of ALARA. CT DOSE: 1564.75 mGy.cm FINDINGS: CT HEAD: Mild involutional changes. No acute intracranial hemorrhage, midline shift, abnormal extra axial collection, hydrocephalus, intracranial mass or territorial infarct. Trace right mastoid effusion. Left mastoid air cells and paranasal sinuses are generally clear. Unremarkable soft tissues and orbits. CTA HEAD AND NECK: Three-vessel morphology of the thoracic aortic arch. Patency of the innominate and imaged subclavian arteries. The common and internal carotid arteries are pa tent. The middle and anterior cerebral arteries are patent. Dominant left vertebral artery. The bilateral vertebral arteries are widely patent. The basilar and posterior cerebral arteries are also patent. The left transverse sinus appears hypoplastic. There is no aneurysm, dissection, high-grade stenosis or arterial occlusion. Lung apices are clear without pneumothorax. Unremarkable soft tissues. Trace right mastoid effusion. Degenerative changes of the cervical spine. IMPRESSION: 1. No acute intracranial abnormality. 2. Unremarkable CTA of the head and neck. 3. Trace right mastoid effusion. ACT 112: Negative or not required by law. The above report was generated using voice recognition software. It may contain grammatical, syntax or spelling errors. Electronically signed by: Daniel Cueto M.D. 11/23/2021 1:39 PM Elbow X-Ray 11/23/21 11:32 RIGHT ELBOW 3 VIEWS CLINICAL HISTORY: Fall with right elbow pain. FINDINGS: 3 views of the right elbow are obtained. No prior studies are available for comparison at the time of dictation. The skeletal structures are osteopenic. No fracture is seen. The joint spaces are maintained. There is no joint effusion. The overlying soft tissues are within normal limits. IMPRESSION: No acute bony abnormality is identified. Electronically signed by: Junaid Rodríguez M.D. 11/23/2021 1:05 PM Humerus X-Ray 11/23/21 11:32 XR humerus RT 2V HISTORY: 76 years-old Female r arm pain . Right upper arm pain status post trauma COMPARISON: Chest radiograph 11/23/2021 TECHNIQUE: 2 views of the right humerus FINDINGS: Mild glenohumeral and AC joint osteoarthritis. No acute fracture, dislocation or opaque foreign body. Right breast surgical clip. IMPRESSION: No acute fracture. ACT 112: Negative or not required by law. The above report was generated using voice recognition software. It may contain grammatical, syntax or spelling errors. Electronically signed by: Daniel Cueto M.D. 11/23/2021 1:[address] 11/23/21 11:35 CT chest diagnostic w con CLINICAL HISTORY: r rib pain s/p fall TECHNIQUE: Multidetector row helical CT of the chest was performed with intravenous contrast. Coronal and sagittal reformations were obtained. Automated dose lowering techniques and/or adjustment according to patient size were utilized for this exam. Comparison: Comparison is made to CT chest 02/23/2017 FINDINGS: Lungs and pleura: Atelectasis versus scarring is seen in the dependent portions of the lungs. Heart and pericardium: Cardiomegaly is seen with biatrial enlargement. Vessels: Unremarkable. Mediastinum and sal: Unremarkable. Chest wall and lower neck: Unremarkable. Abdomen: A hiatal hernia is seen. Bones: Unremarkable. In particular no evidence of rib fractures. IMPRESSION: No acute abnormality and in particular no evidence of rib fracture. ACT 112: Negative or not required by law. Electronically signed by: Babatunde Burrell M.D. 11/23/2021 1:57 PM Head CTA 11/23/21 11:35 CT angio neck with con, CT angio head w con, CT head/brain wo con CLINICAL HISTORY: 76 years-old Female with dizzy. Acute dizziness with syncope COMPARISON STUDY: CT cervical spine of same day, head CT 11/22/2019 TECHNIQUE: Following the IV administration of 120 mL of Optiray, CT angiogram of the head and neck was performed from the aortic arch to the skull base. Images are reviewed in the axial, sagittal, and coronal planes. 3-D MIPS images are created and assessed. IV contrast was administered without complication. All measurements were calculated based on NASCET criteria. Noncontrast head CT was also obtained. A dose lowering technique was utilized adhering to the principles of ALARA. CT DOSE: 1564.75 mGy.cm FINDINGS: CT HEAD: Mild involutional changes. No acute intracranial hemorrhage, midline shift, abnormal extra axial collection, hydrocephalus, intracranial mass or territorial infarct. Trace right mastoid effusion. Left mastoid air cells and paranasal sinuses are generally clear. Unremarkable soft tissues and orbits. CTA HEAD AND NECK: Three-vessel morphology of the thoracic aortic arch. Patency of the innominate and imaged subclavian arteries. The common and internal carotid arteries are patent. The middle and anterior cerebral arteries are patent. Dominant left vertebral artery. The bilateral vertebral arteries are widely patent. The basilar and posterior cerebral arteries are also patent. The left transverse sinus appears hypoplastic. There is no aneurysm, dissection, high-grade stenosis or arterial occlusion. Lung apices are clear without pneumothorax. Unremarkable soft tissues. Trace right mastoid effusion. Degenerative changes of the cervical spine. IMPRESSION: 1. No acute intracranial abnormality. 2. Unremarkable CTA of the head and neck. 3. Trace right mastoid effusion. ACT 112: Negative or not required by law. The above report was generated using voice recognition software. It may contain grammatical, syntax or spelling errors. Electronically signed by: Daniel Cueto M.D. 11/23/2021 1:39 PM Neck CTA 11/23/21 11:35 CT angio neck with con, CT angio head w con, CT head/brain wo con CLINICAL HISTORY: 76 years-old Female with dizzy. Acute dizziness with syncope COMPARISON STUDY: CT cervical spine of same day, head CT 11/22/2019 TECHNIQUE: Following the IV administration of 120 mL of Optiray, CT angiogram of the head and neck was performed from the aortic arch to the skull base. Images are reviewed in the axial, sagittal, and coronal planes. 3-D MIPS images are created and assessed. IV contrast was administered without complication. All measurements were calculated based on NASCET criteria. Noncontrast head CT was also obtained. A dose lowering technique was utilized adhering to the principles of ALARA. CT DOSE: 1564.75 mGy.cm FINDINGS: CT HEAD: Mild involutional changes. No acute intracranial hemorrhage, midline shift, abnormal extra axial collection, hydrocephalus, intracranial mass or territorial infarct. Trace right mastoid effusion. Left mastoid air cells and paranasal sinuses are generally clear. Unremarkable soft tissues and orbits. CTA HEAD AND NECK: Three-vessel morphology of the thoracic aortic arch. Patency of the innominate and imaged subclavian arteries. The common and internal carotid arteries are patent. The middle and anterior cerebral arteries are patent. Dominant left vertebral artery. The bilateral vertebral arteries are widely patent. The basilar and posterior cerebral arteries are also patent. The left transverse sinus appears hypoplastic. There is no aneurysm, dissection, high-grade stenosis or arterial occlusion. Lung apices are clear without pneumothorax. Unremarkable soft tissues. Trace right mastoid effusion. Degenerative changes of the cervical spine. IMPRESSION: 1. No acute intracranial abnormality. 2. Unremarkable CTA of the head and neck. 3. Trace right mastoid effusion. ACT 112: Negative or not required by law. The above report was generated using voice recognition software. It may contain grammatical, syntax or spelling errors. Electronically signed by: Daniel Cueto M.D. 11/23/2021 1:39 PM Discharge Plan Visit Data Chief Complaint: Fall Stated Complaint: FALL,RT ARM PAIN ED Provider: Jaswinder Medina Discharge Problem: Syncope, Acute confusion Discharge Problem: Syncope Qualifiers: Syncope type: unspecified Qualified Code(s): R55 - Syncope and collapse
[2021-11-23] MEDS ORDERED: SODIUM CHLORIDE 0.9% 500 ML IV SCH (11:45)
[2021-11-23 12:39] LABS: Basophils # (auto) 0.01 K/uL (0-0.2); Basophils % (auto) 0.2 %; Eosinophils # (auto) 0.12 K/uL (0-0.5); Hematocrit (blood only) 39.3 % (37-47); Hemoglobin 12.9 g/dL (12.0-16.0); Lymphocytes # (auto) 1.53 K/uL (1.2-3.4); Lymphocytes % (auto) 25.8 %; Mean Corpuscular Hemoglobin 30.7 pg (25-34); Mean Corpuscular Hgb Conc 32.8 g/dL (32-36); Mean Corpuscular Volume 93.6 fL (80-100); Mean Platelet Volume 10.5 fL (7.4-10.4); Monocytes # (auto) 0.64 K/uL (0.11-0.59); Monocytes % (auto) 10.8 %; Neutrophils # (auto) 3.64 K/uL (1.4-6.5); Neutrophils % (auto) 61.2 %; Platelet Count 214 K/uL (130-400); RDW Coefficient of Variation 13.8 % (11.5-14.5); RDW Standard Deviation 47.7 fL (36.4-46.3); White Blood Count 5.94 K/uL (4.8-10.8)
[2021-11-23 12:58] LABS: Troponin I High Sensitivity 5.3 pg/ml (0-14)
[2021-11-23 13:01] LABS: Albumin Globulin Ratio 1.6 (0.9-2); Albumin Level 3.9 gm/dl (3.4-5.0); BUN Creatinine Ratio 22.1 (10-20); Bilirubin,Total 0.4 mg/dl (0.2-1.0); Calcium 8.4 mg/dl (8.5-10.1); Creatinine Clr Calc Pharmacy 45.4 ml/min; Est GFR (African American) 77.1 ml/min; Est GFR (Non-African American) 66.6 ml/min; Globulin 2.4 gm/dl (2.5-4.0); Magnesium 2.1 mg/dl (1.7-2.4); Potassium 4.6 mmol/L (3.5-5.1); Total Protein 6.3 gm/dl (6.0-8.3)
--- NOTE | 2021-11-23 13:06 | XRay Report ---
RIGHT ELBOW 3 VIEWS CLINICAL HISTORY: Fall with right elbow pain. FINDINGS: 3 views of the right elbow are obtained. No prior studies are available for comparison at t he time of dictation. The skeletal structures are osteopenic. No fracture is seen. The joint spaces a re maintained. There is no joint effusion. The overlying soft tissues are within normal limits. IMPRESSION: No acute bony abnormality is identified. Electronically signed by: Junaid Rodríguez M.D. 11/23/2021 1:05 PM
--- NOTE | 2021-11-23 13:09 | XRay Report ---
XR humerus RT 2V HISTORY: 76 years-old Female r arm pain . Right upper arm pain status post trauma COMPARISON: Chest radiograph 11/23/2021 TECHNIQUE: 2 views of the right humerus FINDINGS: Mild glenohumeral and AC joint osteoarthritis. No acute fracture, dislocation or opaque foreign body. Right breast surgical clip. IMPRESSION: No acute fracture. ACT 112: Negative or not required by law. The above report was generated using voice recognition software. It may contain grammatical, syntax o r spelling errors. Electronically signed by: Daniel Cueto M.D. 11/23/2021 1:07 PM
--- NOTE | 2021-11-23 13:11 | XRay Report ---
XR chest 1V portable CLINICAL HISTORY: fall TECHNIQUE: Single frontal radiograph of the chest was obtained. Comparison: Comparison is made to chest radiograph 04/10/2021 FINDINGS: No lines and tubes are seen. Cardiomegaly is noted. The lungs are clear. No evidence of pleural effus ion or pneumothorax. IMPRESSION: No acute chest disease. ACT 112: Negative or not required by law. Electronically signed by: Babatunde Burrell M.D. 11/23/2021 1:10 PM
--- NOTE | 2021-11-23 13:20 | Electrocardiogram Report ---
Test Reason : Blood Pressure : / mmHG Vent. Rate : 061 BPM Atrial Rate : 061 BPM P-R Int : 150 ms QRS Dur : 076 ms QT Int : 422 ms P-R-T Axes : 074 061 063 degrees QTc Int : 424 ms Normal sinus rhythm Normal ECG When compared with ECG of 10-APR-2021 00:23, No significant change was found Confirmed by Kiel Rosales ([id number]) on 11/23/2021 1:19:42 PM Referred By: REFERRED SELF Confirmed By:Kiel Rosales
[2021-11-23] MEDS ORDERED: OPTIRAY 320 125ml IV ONE (13:28)
--- NOTE | 2021-11-23 13:42 | CT Scan Report ---
CT angio neck with con, CT angio head w con, CT head/brain wo con CLINICAL HISTORY: 76 years-old Female with dizzy. Acute dizziness with syncope COMPARISON STUDY: CT cervical spine of same day, head CT 11/22/2019 TECHNIQUE: Following the IV administration of 120 mL of Optiray, CT angiogram of the head and neck wa s performed from the aortic arch to the skull base. Images are reviewed in the axial, sagittal, and c oronal planes. 3-D MIPS images are created and assessed. IV contrast was administered without complic ation. All measurements were calculated based on NASCET criteria. Noncontrast head CT was also obtain ed. A dose lowering technique was utilized adhering to the principles of ALARA. CT DOSE: 1564.75 mGy.cm FINDINGS: CT HEAD: Mild involutional changes. No acute intracranial hemorrhage, midline shift, abnormal extra axial mumtaz ection, hydrocephalus, intracranial mass or territorial infarct. Trace right mastoid effusion. Left m astoid air cells and paranasal sinuses are generally clear. Unremarkable soft tissues and orbits. CTA HEAD AND NECK: Three-vessel morphology of the thoracic aortic arch. Patency of the innominate and imaged subclavian arteries. The common and internal carotid arteries are patent. The middle and anterior cerebral arter ies are patent. Dominant left vertebral artery. The bilateral vertebral arteries are widely patent. T he basilar and posterior cerebral arteries are also patent. The left transverse sinus appears hypopla stic. There is no aneurysm, dissection, high-grade stenosis or arterial occlusion. Lung apices are clear without pneumothorax. Unremarkable soft tissues. Trace right mastoid effusion. Degenerative changes of the cervical spine. IMPRESSION: 1. No acute intracranial abnormality. 2. Unremarkable CTA of the head and neck. 3. Trace right mastoid effusion. ACT 112: Negative or not required by law. The above report was generated using voice recognition software. It may contain grammatical, syntax o r spelling errors. Electronically signed by: Daniel Cueto M.D. 11/23/2021 1:39 PM
--- NOTE | 2021-11-23 13:43 | CT Scan Report ---
CT SCAN OF THE CERVICAL SPINE CLINICAL HISTORY: Syncope. Fall. COMPARISON STUDY: No priors. TECHNIQUE: CT scan of the cervical spine is performed from the skull base to the upper thoracic spine . Images are reviewed in the axial, sagittal, and coronal planes. IV contrast was not administered fo r this examination. A dose lowering technique was utilized adhering to the principles of ALARA. FINDINGS: Skeletal structures: The skeletal structures are osteopenic. There is no evidence of fracture or subl uxation involving the cervical spine. Vertebral body height and alignment are maintained. There is s traightening of the cervical lordosis with mild reversal centered at C4-C5. Small anterior osteophyte s are seen throughout. The odontoid process and lateral masses are intact. The atlantoaxial articulat ion is preserved noting mild productive degenerative change. The spinous processes appear intact. The re is minimal multilevel facet arthropathy. Intervertebral discs: There is moderate disc space narrowing at C4-C5, C5-C6, and C6-C7. Central canal: Posterior disc osteophyte complexes at C4-C5, C5-C6, and C6-C7 likely contribute to ac quired compromise of the central canal. Soft tissues: The prevertebral and paraspinous soft tissues are within normal limits. Calvarium: The visualized calvarium at the skull base appears intact. Brain parenchyma: Partially visualized brain parenchyma at the skull base is within normal limits. Sinuses and mastoids: The visualized paranasal sinuses are clear. There is trace right mastoid effusi on. The left mastoid air cells are well pneumatized. Lung apices: Clear as visualized. IMPRESSION: 1. There is no evidence of fracture or subluxation involving the cervical spine. 2. Osteopenia and spondylotic change as above. ACT 112: Negative or not required by law. Electronically signed by: Junaid Rodríguez M.D. 11/23/2021 1:42 PM
--- NOTE | 2021-11-23 13:58 | CT Scan Report ---
CT chest diagnostic w con CLINICAL HISTORY: r rib pain s/p fall TECHNIQUE: Multidetector row helical CT of the chest was performed with intravenous contrast. Coronal and sagittal reformations were obtained. Automated dose lowering techniques and/or adjustment accord ing to patient size were utilized for this exam. Comparison: Comparison is made to CT chest 02/23/2017 FINDINGS: Lungs and pleura: Atelectasis versus scarring is seen in the dependent portions of the lungs. Heart and pericardium: Cardiomegaly is seen with biatrial enlargement. Vessels: Unremarkable. Mediastinum and sal: Unremarkable. Chest wall and lower neck: Unremarkable. Abdomen: A hiatal hernia is seen. Bones: Unremarkable. In particular no evidence of rib fractures. IMPRESSION: No acute abnormality and in particular no evidence of rib fracture. ACT 112: Negative or not required by law. Electronically signed by: Babatunde Burrell M.D. 11/23/2021 1:57 PM
[2021-11-23 15:32] LABS: Appearance Urine Clear (Clear); Bilirubin Urine Negative (Negative); Blood Urine Negative (Negative); Color Urine Yellow; Glucose Urine UA Negative (Negative); Ketones Urine Negative (Negative); Leukocyte Esterase Urine Negative (Negative); Nitrite Urine Negative (Negative); Protein Urine Negative (Negative); Specific Gravity Urine 1.035 (1.000-1.030); Urobilinogen Urine Negative (Negative)
[2021-11-23] MEDS ORDERED: ACETAMINOPHEN 1,000 MG/100 ML VIAL IV STA (16:37)
[2021-11-23] MEDS ORDERED: ONDANSETRON INJ 2 MG/ML 2 ML VIAL IV STA (16:37)
--- NOTE | 2021-11-23 17:11 | History & Physical Report ---
Date of Service November 23, 2021 Assessment & Plan (1) Altered mental status: (2) Amnesia: Plan: Admit to telemetry Patient presenting from home after 2 possible syncopal events yesterday with amnesia of the events. In the ED, hemodynamically stable, head CT, head and neck CTAs unremarkable for acute findings Noted to have right eye proptosis on exam -- ?? 3rd nerve palsy. PERRL and EOMI, no other focal deficits noted Brain MRI and echo Monitor on telemetry for arrhythmias No obvious source of infection at this time --check Lyme, Anaplasma and Babesia smears Check vitamin D and vitamin B12 levels. ESR and CRP -- ?? GCA or PMR Neuro consult PT/OT (3) Elbow contusion: Plan: Right elbow and right humerus x-rays negative for fracture RICE therapy, Tylenol (4) Barretts esophagus: Plan: Continue PPI (5) Dyslipidemia: Plan: Continue statin (6) DVT prophylaxis: Plan: SQ Lovenox History of Present Illness Chief Complaint: Fall, altered mental status Primary Care Provider: Remedios Kohli, 76-year-old female PMH dyslipidemia, Alonso's esophagus, osteoporosis, depression, and other problems listed below who presents the ED for evaluation of fall and altered mental status. Patient reports she has no recollection of the events of yesterday, therefore history is obtained from patient's who is the bedside. He states that the patient was in her usual state of health yesterday morning and afternoon. In the evening, he heard a loud crash come from the kitchen and he then found his on the floor surrounded by broken dishes. She was awake at that time however was crying in pain due to right elbow discomfort. He was able to help her up however she was very weak. He then helped her into the recliner chair. Shortly after, he was in another room and heard another loud noise and again found her on the floor. She was still complaining of her right elbow hurting. He offered to take her to the hospital however she did not want to go. She said that she wanted to lay down in bed. Patient slept throughout most of the night however did get up once to take some Aleve and go to the bathroom. No further falls reported. Patient reports that today her right elbow continues to hurt and she " just does not feel right". denies noticing any unilateral weakness, facial droop or drooling. Patient reports that last week she was having some dysuria and hematuria and took Bactrim for 5 days. She reports that this was from an old prescription that she and her finished. Reports urinary symptoms have resolved. No fevers or chills. Also noted that patient's trazodone was increased from 50mg --> 100mg about 1 month ago. Patient also prescribed Fioricet and Xanax. Patient reports he took 1 Fioricet 2 days ago, does not remember the last time she took Xanax. In the ED, patient is hemodynamically stable. She had extensive imaging completed that was unremarkable for acute findings. Labs are unremarkable. She was given IVF. Allergies Allergy/AdvReac Type Severity Reaction Status Date / Time aspirin AdvReac Intermediate Stomach Verified 04/10/21 01:08 problems and bleeding Home Medications Medication Instructions Recorded Confirmed Type atorvastatin 40 mg tablet 40 mg PO HS 02/04/19 11/23/21 History omeprazole 20 mg capsule,delayed 20 mg PO BIDM 02/04/19 11/23/21 History release sumatriptan succinate 25 mg tablet 25 mg PO DIRECTED PRN 02/04/19 11/23/21 History alprazolam 0.25 mg tablet 0.25 mg PO TID PRN 11/23/21 11/23/21 History xzlvmzewmh-umvasxsbpldmb-tbgmghcr 1 tab PO Q6H PRN 11/23/21 11/23/21 History 50 mg-325 mg-40 mg tablet denosumab 60 mg/mL subcutaneous 60 mg SUBCUT Q6M 11/23/21 11/23/21 History syringe (Prolia) epinephrine 0.3 mg/0.3 mL 0.3 mg IM UD PRN 11/23/21 11/23/21 History injection, auto-injector trazodone 100 mg tablet 100 mg PO HS 11/23/21 11/23/21 History Past Med/Surg History Medical History Barretts esophagus Cystocele S/p repair Dyslipidemia Osteoporosis Surgical History S/P left knee arthroscopy S/P BELA (total abdominal hysterectomy) S/P tonsillectomy and adenoidectomy S/P tubal ligation Family History Father Cancer Mother Cancer Social History Smoking Status: Never smoker Hx Alcohol Use: Yes Alcohol Intake Frequency: 2-4 x/Month Preferred Language: Somali Feels Safe at Home: Yes Review of Systems Review of Systems: Completed with patient however limited due to amnesia of yesterday's events Physical Exam Constitutional: WD/WN, vitals as above Eyes: PERRL, conjunctivae normal, anicteric sclerae + eyelid abnormality (right eyelid ptosis ) ENMT: external ear and nose normal, oropharynx normal Respiratory: normal respiratory effort, lungs clear to auscultation Cardiovascular: Rate/Rhythm: regular rate and regular rhythm Vessels: nor mal peripheral pulses Extremities: no edema Gastrointestinal (Abdomen): normal bowel sounds, soft, nontender, no hepatosplenomegaly Musculoskeletal: no cyanosis or clubbing, extremities motor strength 5/5 tenderness to palpation of right elbow Skin: no rashes, warm and dry Neurologic: PERRL, EOMI, accommodation nl, no face palsy, no dysarthria awake Motor/Sensory: no pronator drift Coordination: normal lmtajk-qz-shfn test and normal wlxc-wy-drfk test Psychiatric: A+Ox3, euthymic affect Results & Data Results & Data ([facility]) Vital Signs (Past 12 Hours) Vital Signs Temp Pulse Pulse Resp BP BP Pulse Ox 11/23/21 15:31 63 18 156/80 H 98 11/23/21 15:00 58 L 17 136/80 97 11/23/21 14:00 55 L 15 142/68 H 97 11/23/21 13:33 72 18 148/79 H 98 11/23/21 13:03 57 L 17 132/67 98 11/23/21 12:16 71 16 96 11/23/21 11:14 36.2 C L 71 16 136/76 96 Laboratory Results Short CBC 11/23/21 Range/Units 12:06 WBC 5.94 (4.8-10.8) K/uL Hgb 12.9 (12.0-16.0) g/dL Hct 39.3 (37-47) % Plt Count 214 (130-400) K/uL BMP 11/23/21 12:10 Sodium 138 Potassium 4.6 Chloride 106 Carbon Dioxide 28 BUN 19 Creatinine 0.86 Glucose 92 Calcium 8.4 L Liver Function 11/23/21 Range/Units 12:10 Total Bilirubin 0.4 (0.2-1.0) mg/dl AST 24 (13-39) U/L ALT 24 (7-52) U/L Alkaline Phosphatase 46 (34-104) U/L Albumin 3.9 (3.4-5.0) gm/dl Urine 11/23/21 Range/Units 14:30 Urine Color Yellow Urine Appearance Clear (Clear) Urine pH 7.0 (4.5-7.5) Ur Specific Hickman 1.035 H (1.000-1.030) Urine Protein Negative (Negative) Urine Glucose (UA) Negative (Negative) Diagnostic Findings Cervical Spine CT 11/23/21 11:31 CT SCAN OF THE CERVICAL SPINE CLINICAL HISTORY: Syncope. Fall. COMPARISON STUDY: No priors. TECHNIQUE: CT scan of the cervical spine is performed from the skull base to the upper thoracic spine. Images are reviewed in the axial, sagittal, and coronal planes. IV contrast was not administered for this examination. A dose lowering technique was utilized adhering to the principles of ALARA. FINDINGS: Skeletal structures: The skeletal structures are osteopenic. There is no evidence of fracture or subluxation involving the cervical spine. Vertebral body height and alignment are maintained. There is straightening of the cervical lordosis with mild reversal centered at C4-C5. Small anterior osteophytes are seen throughout. The odontoid process and lateral masses are intact. The atlantoaxial articulation is preserved noting mild productive degenerative change. The spinous processes appear intact. There is minimal multilevel facet arthropathy. Intervertebral discs: There is moderate disc space narrowing at C4-C5, C5-C6, and C6-C7. Central canal: Posterior disc osteophyte complexes at C4-C5, C5-C6, and C6-C7 likely contribute to acquired compromise of the central canal. Soft tissues: The prevertebral and paraspinous soft tissues are within normal limits. Calvarium: The visualized calvarium at the skull base appears intact. Brain parenchyma: Partially visualized brain parenchyma at the skull base is within normal limits. Sinuses and mastoids: The visualized paranasal sinuses are clear. There is trace right mastoid effusion. The left mastoid air cells are well pneumatized. Lung apices: Clear as visualized. IMPRESSION: 1. There is no evidence of fracture or subluxation involving the cervical spine. 2. Osteopenia and spondylotic change as above. ACT 112: Negative or not required by law. Electronically signed by: Junaid Rodríguez M.D. 11/23/2021 1:42 PM Chest X-Ray 11/23/21 11:31 XR chest 1V portable CLINICAL HISTORY: fall TECHNIQUE: Single frontal radiograph of the chest was obtained. Comparison: Comparison is made to chest radiograph 04/10/2021 FINDINGS: No lines and tubes are seen. Cardiomegaly is noted. The lungs are clear. No evidence of pleural effusion or pneumothorax. IMPRESSION: No acute chest disease. ACT 112: Negative or not required by law. Electronically signed by: Babatunde Burrell M.D. 11/23/2021 1:[address] 11/23/21 11:31 CT angio neck with con, CT angio head w con, CT head/brain wo con CLINICAL HISTORY: 76 years-old Female with dizzy. Acute dizziness with syncope COMPARISON STUDY: CT cervical spine of same day, head CT 11/22/2019 TECHNIQUE: Following the IV administration of 120 mL of Optiray, CT angiogram of the head and neck was performed from the aortic arch to the skull base. Images are reviewed in the axial, sagittal, and coronal planes. 3-D MIPS images are created and assessed. IV contrast was administered without complication. All measurements were calculated based on NASCET criteria. Noncontrast head CT was also obtained. A dose lowering technique was utilized adhering to the principles of ALARA. CT DOSE: 1564.75 mGy.cm FINDINGS: CT HEAD: Mild involutional changes. No acute intracranial hemorrhage, midline shift, abnormal extra axial collection, hydrocephalus, intracranial mass or territorial infarct. Trace right mastoid effusion. Left mastoid air cells and paranasal sinuses are generally clear. Unremarkable soft tissues and orbits. CTA HEAD AND NECK: Three-vessel morphology of the thoracic aortic arch. Patency of the innominate and imaged subclavian arteries. The common and internal carotid arteries are patent. The middle and anterior cerebral arteries are patent. Dominant left vertebral artery. The bilateral vertebral arteries are widely patent. The basilar and posterior cerebral arteries are also patent. The left transverse sinus appears hypoplastic. There is no aneurysm, dissection, high-grade stenosis or arterial occlusion. Lung apices are clear without pneumothorax. Unremarkable soft tissues. Trace right mastoid effusion. Degenerative changes of the cervical spine. IMPRESSION: 1. No acute intracranial abnormality. 2. Unremarkable CTA of the head and neck. 3. Trace right mastoid effusion. ACT 112: Negative or not required by law. The above report was generated using voice recognition software. It may contain grammatical, syntax or spelling errors. Electronically signed by: Daniel Cueto M.D. 11/23/2021 1:39 PM Elbow X-Ray 11/23/21 11:32 RIGHT ELBOW 3 VIEWS CLINICAL HISTORY: Fall with right elbow pain. FINDINGS: 3 views of the right elbow are obtained. No prior studies are available for comparison at the time of dictation. The skeletal structures are osteopenic. No fracture is seen. The joint spaces are maintained. There is no joint effusion. The overlying soft tissues are within normal limits. IMPRESSION: No acute bony abnormality is identified. Electronically signed by: Junaid Rodríguez M.D. 11/23/2021 1:05 PM Humerus X-Ray 11/23/21 11:32 XR humerus RT 2V HISTORY: 76 years-old Female r arm pain . Right upper arm pain status post trauma COMPARISON: Chest radiograph 11/23/2021 TECHNIQUE: 2 views of the right humerus FINDINGS: Mild glenohumeral and AC joint osteoarthritis. No acute fracture, dislocation or opaque foreign body. Right breast surgical clip. IMPRESSION: No acute fracture. ACT 112: Negative or not required by law. The above report was generated using voice recognition software. It may contain grammatical, syntax or spelling errors. Electronically signed by: Daniel Cueto M.D. 11/23/2021 1:[address] 11/23/21 11:35 CT chest diagnostic w con CLINICAL HISTORY: r rib pain s/p fall TECHNIQUE: Multidetector row helical CT of the chest was performed with intravenous contrast. Coronal and sagittal reformations were obtained. Automated dose lowering techniques and/or adjustment according to patient size were utilized for this exam. Comparison: Comparison is made to CT chest 02/23/2017 FINDINGS: Lungs and pleura: Atelectasis versus scarring is seen in the dependent portions of the lungs. Heart and pericardium: Cardiomegaly is seen with biatrial enlargement. Vessels: Unremarkable. Mediastinum and sal: Unremarkable. Chest wall and lower neck: Unremarkable. Abdomen: A hiatal hernia is seen. Bones: Unremarkable. In particular no evidence of rib fractures. IMPRESSION: No acute abnormality and in particular no evidence of rib fracture. ACT 112: Negative or not required by law. Electronically signed by: Babatunde Burrell M.D. 11/23/2021 1:57 PM Head CTA 11/23/21 11:35 CT angio neck with con, CT angio head w con, CT head/brain wo con CLINICAL HISTORY: 76 years-old Female with dizzy. Acute dizziness with syncope COMPARISON STUDY: CT cervical spine of same day, head CT 11/22/2019 TECHNIQUE: Following the IV administration of 120 mL of Optiray, CT angiogram of the head and neck was performed from the aortic arch to the skull base. Images are reviewed in the axial, sagittal, and coronal planes. 3-D MIPS images are created and assessed. IV contrast was administered without complication. All measurements were calculated based on NASCET criteria. Noncontrast head CT was also obtained. A dose lowering technique was utilized adhering to the principles of ALARA. CT DOSE: 1564.75 mGy.cm FINDINGS: CT HEAD: Mild involutional changes. No acute intracranial hemorrhage, midline shift, abnormal extra axial collection, hydrocephalus, intracranial mass or territorial infarct. Trace right mastoid effusion. Left mastoid air cells and paranasal sinuses are generally clear. Unremarkable soft tissues and orbits. CTA HEAD AND NECK: Three-vessel morphology of the thoracic aortic arch. Patency of the innominate and imaged subclavian arteries. The common and internal carotid arteries are patent. The middle and anterior cerebral arteries are patent. Dominant left vertebral artery. The bilateral vertebral arteries are widely patent. The basilar and posterior cerebral arteries are also patent. The left transverse sinus appears hypoplastic. There is no aneurysm, dissection, high-grade stenosis or arterial occlusion. Lung apices are clear without pneumothorax. Unremarkable soft tissues. Trace right mastoid effusion. Degenerative changes of the cervical spine. IMPRESSION: 1. No acute intracranial abnormality. 2. Unremarkable CTA of the head and neck. 3. Trace right mastoid effusion. ACT 112: Negative or not required by law. The above report was generated using voice recognition software. It may contain grammatical, syntax or spelling errors. Electronically signed by: Daniel Cueto M.D. 11/23/2021 1:39 PM Neck CTA 11/23/21 11:35 CT angio neck with con, CT angio head w con, CT head/brain wo con CLINICAL HISTORY: 76 years-old Female with dizzy. Acute dizziness with syncope COMPARISON STUDY: CT cervical spine of same day, head CT 11/22/2019 TECHNIQUE: Following the IV administration of 120 mL of Optiray, CT angiogram of the head and neck was performed from the aortic arch to the skull base. Images are reviewed in the axial, sagittal, and coronal planes. 3-D MIPS images are created and assessed. IV contrast was administered without complication. All measurements were calculated based on NASCET criteria. Noncontrast head CT was also obtained. A dose lowering technique was utilized adhering to the principles of ALARA. CT DOSE: 1564.75 mGy.cm FINDINGS: CT HEAD: Mild involutional changes. No acute intracranial hemorrhage, midline shift, abnormal extra axial collection, hydrocephalus, intracranial mass or territorial infarct. Trace right mastoid effusion. Left mastoid air cells and paranasal sinuses are generally clear. Unremarkable soft tissues and orbits. CTA HEAD AND NECK: Three-vessel morphology of the thoracic aortic arch. Patency of the innominate and imaged subclavian arteries. The common and internal carotid arteries are patent. The middle and anterior cerebral arteries are patent. Dominant left vertebral artery. The bilateral vertebral arteries are widely patent. The basilar and posterior cerebral arteries are also patent. The left transverse sinus appears hypoplastic. There is no aneurysm, dissection, high-grade stenosis or arterial occlusion. Lung apices are clear without pneumothorax. Unremarkable soft tissues. Trace right mastoid effusion. Degenerative changes of the cervical spine. IMPRESSION: 1. No acute intracranial abnormality. 2. Unremarkable CTA of the head and neck. 3. Trace right mastoid effusion. ACT 112: Negative or not required by law. The above report was generated using voice recognition software. It may contain grammatical, syntax or spelling errors. Electronically signed by: Daniel Cueto M.D. 11/23/2021 1:39 PM Code Status & VTE Plan Code Status Patient is a full code as per my discussion with her. Patient states that her , Daniel, will be her decision-maker in the event she were to be unable to. VTE Prophylaxis Plan VTE Prophylaxis will be ordered: Yes Supervising Physician Co-Signing Physician Notes Date of Service: November 23, 2021 76 yo F presents after questionable syncopal episode yesterday. She is having amnesia and reports last remembering watering her garden yesterday with and doesn't remember anything after that. She started to realize she had memory loss just this morning. She currently reports feeling tingly all over. She denies fevers, but states she feels cold. Recently had a UTI and took a short course of Bactrim last week with resolution of symptoms. UA is clear of infection and appears concentrated with a high SG. She has LLQ pain on exam, but didn't realize she had abdominal pain. She reports a severe headache; has a h/o migraines, but states this headache is different because of the sensation of tingling. She states the light is bothering her eyes, and that this happens when she gets a migraine. She denies any neck stiffness but did fall on her right side apparently as there is soreness and restricted ROM in her right arm and shoulder today. No fracture present on workup of the arm or C-spine. She is able to sit up on the side of the bed but reports feeling dizzy. She reports feeling as though she is falling to the left. She also reports seeing black bugs in her vision now. Denies any eye pain or ear fullness. Last Xanax as on and she has been taking an increased dose of Trazodone 50-->100mg QHS now "for a few weeks." Denies any bug bites Workup reveals a normal CBC, CMP, UA, CT head and CTA head and neck. Xrays of the arm reveal no fracture. She has a normal EKG. HS trop is negative, COVID is pending. Vitals are stable and she is oxygenating well on room air. She is oriented but has a period of time where she cannot recall events that occurred. Head: NC/AT EYES: EOMI bilaterally, PERRL, normal conjunctivae, no scleral icterus, no fundoscopic abnormality,right eye>left eye ptosis is present paritally obscuring the right pupil ENT: external ear and nose normal, oropharynx clear, no TM abnormality, no m axillary or ethmoid sinus tenderness NECK: trachea midline RESPIRATORY: clear to auscultation bilaterally, no crackles, rales or wheezes, normal respiratory effort CARDIOVASCULAR: regular rate and rhythm, S1 and 2 heard without murmurs, gallops or rubs, no JVD, no peripheral edema CHEST: inspection of chest was normal GASTROINTESTINAL: soft, nontender, ND, no guarding MUSCULOSKELETAL: strength 5/5 throughout (noted limitation in movement of the right arm generally because of pain), head is normocephalic and atraumatic SKIN: warm and dry, no rashes NEUROLOGIC: patellar DTRs 2+ on left, could not elicit right knee reflex or S1 reflex bilaterally, PERRL, EOMI, no facial palsy, no dysarthria. Touch, pain and proprioception normal. CN 2-12 grossly intact, no sensory deficit, normal co gnition, normal speech, no tremor PSYCHIATRIC: alert cooperative and oriented to person, place and time. Euthymic mood, makes good eye contact, language grossly intact, recent and remote memory grossly intact. 1. Syncope 2. third nerve palsy 3. Amnesia Etiologies of clinical symptoms include but not limited to acute stroke, venous sinus thrombosis, intracranial aneurysm, GCA, meningitis. MRI brain with and wo contrast pending. If imaging is normal and symptoms persist, she may consider an LP but is adamantly against this idea right now. Echo pending. There is no fever now but if she develops fever would consider empiric coverage for meningitis and LP in am. Ricketssial panel obtained given her affinity for the garden and the high prevalence of tick-borne illness in this area. Will add a CRP and ESR to trend in am. Although fundoscopic exam was performed, this was limited without slit lamp or dilated pupils . Ophthalmologic evaluation may be needed for visual symptoms. PT/OT. Neuro consulted. Bridget Ricardo DO [facility] Hospitalist ADDENDUM: Brain MRI reveals no acute intracranial abnormality. Lyme IgM is equivocal. Start doxy empirically. HSV encephalitis/meningitis considered a possibility but patient declines LP. Will await neuro assessment and see how she feels in the morning. May just be experiencing a post-concussion syndrome now, however, the timing of events seem to suggest her amnesia came on prior to any head trauma. B12 level is 162 and replacement has been started. DO Davion
[2021-11-23] MEDS ORDERED: ONDANSETRON INJ 2 MG/ML 2 ML VIAL IV PRN (17:17)
--- NOTE | 2021-11-23 17:33 | Communication Note ---
Date of Service: November 23, 2021 76 yo F presents after questionable syncopal episode yesterday. She is having amnesia and reports last remembering watering her garden yesterday with and doesn't remember anything after that. She started to realize she had memory loss just this morning. She currently reports feeling tingly all over. She denies fevers, but states she feels cold. Recently had a UTI and took a short course of Bactrim last week with resolution of symptoms. UA is clear of infection and appears concentrated with a high SG. She has LLQ pain on exam, but didn't realize she had abdominal pain. She reports a severe headache; has a h/o migraines, but states this headache is different because of the sensation of tingling. She states the light is bothering her eyes, and that this happens when she gets a migraine. She denies any neck stiffness but did fall on her right side apparently as there is soreness and restricted ROM in her right arm and shoulder today. No fracture present on workup of the arm or C-spine. She is able to sit up on the side of the bed but reports feeling dizzy. She reports feeling as though she is falling to the left. She also reports seeing black bugs in her vision now. Denies any eye pain or ear fullness. Last Xanax as on and she has been taking an increased dose of Trazodone 50-->100mg QHS now "for a few weeks." Denies any bug bites Workup reveals a normal CBC, CMP, UA, CT head and CTA head and neck. Xrays of the arm reveal no fracture. She has a normal EKG. HS trop is negative, COVID is pending. Vitals are stable and she is oxygenating well on room air. She is oriented but has a period of time where she cannot recall events that occurred. Head: NC/AT EYES: EOMI bilaterally, PERRL, normal conjunctivae, no scleral icterus, no fundoscopic abnormality, right eye>left eye ptosis is present paritally obscuring the right pupil ENT: external ear and nose normal, oropharynx clear, no TM abnormality, no maxillary or ethmoid sinus tenderness NECK: trachea midline RESPIRATORY: clear to auscultation bilaterally, no crackles, rales or wheezes, normal respiratory effort CARDIOVASCULAR: regular rate and rhythm, S1 and 2 heard without murmurs, gallops or rubs, no JVD, no peripheral edema CHEST: inspection of chest was normal GASTROINTESTINAL: soft, nontender, ND, no guarding MUSCULOSKELETAL: strength 5/5 throughout (noted limitation in movement of the right arm generally because of pain), head is normocephalic and atraumatic SKIN: warm and dry, no rashes NEUROLOGIC: patellar DTRs 2+ on left, could not elicit right knee reflex or S1 reflex bilaterally, PERRL, EOMI, no facial palsy, no dysarthria. Touch, pain and proprioception normal. CN 2-12 grossly intact, no sensory deficit, normal cognition, normal speech, no tremor PSYCHIATRIC: alert cooperative and oriented to person, place and time. Euthymic mood, makes good eye contact, language grossly intact, recent and remote memory grossly intact. 1. Syncope 2. third nerve palsy 3. Amnesia Etiologies of clinical symptoms include but not limited to acute stroke, venous sinus thrombosis, intracranial aneurysm, GCA, meningitis. MRI brain with and wo contrast pending. If imaging is normal and symptoms persist, she may consider an LP but is adamantly against this idea right now. Echo pending. There is no fever now but if she develops fever would consider empiric coverage for meningitis and LP in am. Ricketssial panel obtained given her affinity for the garden and the high prevalence of tick-borne illness in this area. Will add a CRP and ESR to trend in am. Although fundoscopic exam was performed, this was limited without slit lamp or dilated pupils . Ophthalmologic evaluation may be needed for visual symptoms. PT/OT. Neuro consulted. Bridget Ricardo DO [facility] [address] Hospitalist
[2021-11-23] MEDS ORDERED: GADOBUTROL 65ML VIAL IV ONE (18:06)
--- NOTE | 2021-11-23 19:29 | Magnetic Resonance Report ---
MRI OF THE BRAIN COMBO CLINICAL HISTORY: Syncope. Amnesia. COMPARISON STUDY: CT of the brain dated 11/23/2021. TECHNIQUE: MRI of the brain was performed utilizing various T1 and T2-weighted sequences in the axial , sagittal, and coronal planes. Contrast-enhanced sequences were acquired following the administratio n of 5.5 cc of Gadavist. FINDINGS: Brain parenchyma: There is age-related involutional change noting mild subcortical and periventricula r microangiopathic disease. There is no hemorrhage or mass effect. There is no restricted diffusion t o suggest acute ischemia. No enhancing mass lesion is identified on the postcontrast images. Penaloza-whi te matter differentiation is preserved. No extra-axial fluid collection is seen. The cerebellar tonsi ls are normal in configuration. Ventricles, sulci, and cisterns: Prominent secondary to involutional change. Pituitary and sella: Unremarkable. Intracranial vasculature: Normal flow voids are maintained at the skull base. Orbits: The bony orbits are grossly intact. Orbital contents are normal in appearance noting bilatera l ocular lens implants. Sinuses and mastoids: There is a right mastoid effusion. The left mastoid air cells are clear, as are the paranasal sinuses. Calvarium: Unremarkable. Cervical cord: Partially visualized cervical spinal cord is normal in morphology and signal intensity . IMPRESSION: No acute intracranial abnormality. ACT 112: Negative or not required by law. Electronically signed by: Junaid Rodríguez M.D. 11/23/2021 7:27 PM
[2021-11-23 20:15] LABS: Lyme Ab IgG w/WB Rflx Negative (Negative)
[2021-11-23 20:16] LABS: C Reactive Protein 0.9 mg/dl (0-0.5)
[2021-11-23 20:25] LABS: Vitamin D, 25 Hydrox 40.7 ng/ml (30-100)
[2021-11-23 20:36] LABS: Lyme Ab IgM w/WB Rflx Equivocal (Negative)
[2021-11-23] MEDS ORDERED: ATORVASTATIN 40 MG TAB PO SCH (21:00)
[2021-11-23] MEDS ORDERED: traZODone HCL 100 MG TAB PO SCH (21:00)
[2021-11-23] MEDS: ACETAMINOPHEN 325 MG TAB PO PRN (23:19)
[2021-11-23] MEDS: CYANOCOBALAMIN (B-12) 500 MCG TABLET PO SCH (23:20)
[2021-11-23] MEDS: DOXYCYCLINE HYCLATE 100 MG CAP PO SCH (23:20)
[2021-11-24] MEDS: ENOXAPARIN INJ 40 MG/0.4 ML SYR SQ SCH ×2 (00:16→17:15)
[2021-11-24 07:06] LABS: Hematocrit (blood only) 40.8 % (37-47); Hemoglobin 13.3 g/dL (12.0-16.0); Mean Corpuscular Hgb Conc 32.6 g/dL (32-36); Mean Corpuscular Volume 91.9 fL (80-100); Mean Platelet Volume 10.2 fL (7.4-10.4); Platelet Count 213 K/uL (130-400); RDW Coefficient of Variation 13.6 % (11.5-14.5); RDW Standard Deviation 45.8 fL (36.4-46.3); Red Blood Count 4.44 M/uL (4.2-5.4); White Blood Count 5.83 K/uL (4.8-10.8)
[2021-11-24 07:23] LABS: BUN Creatinine Ratio 18.1 (10-20); C Reactive Protein 0.8 mg/dl (0-0.5); Calcium 7.8 mg/dl (8.5-10.1); Creatinine Clr Calc Pharmacy 54.2 ml/min; Est GFR (African American) 95.6 ml/min; Est GFR (Non-African American) 82.5 ml/min; Potassium 3.7 mmol/L (3.5-5.1)
[2021-11-24] MEDS: CYANOCOBALAMIN (B-12) 500 MCG TABLET PO SCH (08:06)
[2021-11-24] MEDS: PANTOprazole 40 MG TAB PO SCH ×2 (08:06→17:14)
[2021-11-24] MEDS: DOXYCYCLINE HYCLATE 100 MG CAP PO SCH ×2 (08:07→18:36)
[2021-11-24] MEDS: ACETAMINOPHEN 325 MG TAB PO PRN ×2 (08:08→12:01)
--- NOTE | 2021-11-24 08:10 | Electrocardiogram Report ---
Test Reason : Blood Pressure : / mmHG Vent. Rate : 054 BPM Atrial Rate : 054 BPM P-R Int : 160 ms QRS Dur : 074 ms QT Int : 450 ms P-R-T Axes : 072 070 074 degrees QTc Int : 426 ms Poor data quality, interpretation may be adversely affected Sinus bradycardia Otherwise normal ECG When compared with ECG of 23-NOV-2021 12:16, No significant change was found Confirmed by Kiel Rosales ([id number]) on 11/24/2021 8:10:27 AM Referred By: REFERRED SELF Confirmed By:Kiel Rosales
[2021-11-24] MEDS ORDERED: SUMAtriptan succinate 50 MG TAB PO STA (12:03)
[2021-11-24] MEDS ORDERED: KETOROLAC TROMETHAMINE 15 MG/ML VIAL IV ONE (15:10)
--- NOTE | 2021-11-24 17:04 | Neurology Consultation ---
Date of Consultation November 24, 2021 Assessment & Plan (1) Syncope: Mrs. Elsa Hightower is a pleasant 76 year old female with suspected vasovagal episodes (episode occured while standing with prodromal symptoms including vision changes and not feeling well) with possible mild TBI or concussion re sulting in amnesia. Patient cognitively is feeling better but suffering from migraine headache which she has had in the past. May be related to presumed concussion from fall yesterday. Recommend IV Benadryl 25 mg IV now and Reglan 10 mg Iv Now. Patinet recieved Iv Toradol as well. reviewed testing with patient this afternoon which is reassuring. Will arrange outpatient EEG. Ok to discharge when patient is ready from my standpoint. Follow up with Neurology PRN for now. (2) Amnesia: History of Present Illness Reason for Consultation: Syncope, amnesia Requesting Physician: Dr Davion DO Attending Physician: Evin Roman MD History of Present Illness A 76 yo woman with Hx of migraine headache and GERD admitted with presumed syncopal episodes w amnesia. No history of epilepsy or syncope. Episode while standing and walking in kitchen. She felt not well like she was on a boat and vision started to go in and out. No incontinence or tongue biting. No convulsion seen. She does not know if she hit her head but hit her right elbow. Having a bad migraine headachce today. She takes fioricit as needed at home. no new medicaitons. No recent illness. Denies fever or chills. Allergies Allergy/AdvReac Type Severity Reaction Status Date / Time aspirin AdvReac Intermediate Stomach Verified 04/10/21 01:08 problems and bleeding Home Medications Medication Instructions Recorded Confirmed Type atorvastatin 40 mg tablet 40 mg PO HS 02/04/19 11/23/21 History omeprazole 20 mg capsule,delayed 20 mg PO BIDM 02/04/19 11/23/21 History release sumatriptan succinate 25 mg tablet 25 mg PO DIRECTED PRN 02/04/19 11/23/21 History alprazolam 0.25 mg tablet 0.25 mg PO TID PRN 11/23/21 11/23/21 History [id number]-ocnvzxmcejpqo-lsbsuhwb 1 tab PO Q6H PRN 11/23/21 11/23/21 History 50 mg-325 mg-40 mg tablet denosumab 60 mg/mL subcutaneous 60 mg SUBCUT Q6M 11/23/21 11/23/21 History syringe (Prolia) epinephrine 0.3 mg/0.3 mL 0.3 mg IM UD PRN 11/23/21 11/23/21 History injection, auto-injector trazodone 100 mg tablet 100 mg PO HS 11/23/21 11/23/21 History Patient History Medical History Barretts esophagus Cystocele S/p repair Dyslipidemia Osteoporosis Surgical History S/P left knee arthroscopy S/P BELA (total abdominal hysterectomy) S/P tonsillectomy and adenoidectomy S/P tubal ligation Family History Father Cancer Mother Cancer Social History Smoking Status: Never smoker Hx Alcohol Use: Yes Alcohol type: beer and hard liquor Alcohol Intake Frequency: 2-4 x/Month Hx Substance Use: No Preferred Language: Uzbek Communication Ability: Effective Carcass Splitter Required: No Beliefs That Will Affect Care: None Current Living Situation: Family Current Living Situation Comment: and daughter Other Information That Helps Us Care for You: No Feels Safe at Home: Yes Assistive Devices: Denture - Upper and Denture - Lower Review of Systems Neurologic: Positive for amnesia / LOC. Positive for migraine headache. Physical Exam Physical Exam: EXAM: Constitutional: appearance normally developed, resting in dark with cold back over her head Face: normocephalic and atraumatic Eyes: normal lids, normal conjunctiva Neck: supple Respiratory: normal effort Cardiovascular: normal pulses Abdomen: non distended Skin: no rashes, lesions, or ulcers noted Psychiatric: normal mood and normal affect NEUROLOGIC EXAMINATION: Appearance: no acute distress Orientation: awake, alert and oriented x 3 Mental Status: alert Attention: normal Knowledge: appropriate Language: no aphasia Speech: no dysarthria Cranial Nerves: CN 2 - no visual defect on confrontation and pupils round, equal, reactive to light CN 3, 4, 6 - extra-ocular movements intact CN 5 - facial sensation intact CN 7 - no facial asymmetry CN 8 - intact hearing CN 9, 10 - palate symmetric CN 11 - good shoulder shrug CN 12 - tongue midline, no abrasion Gait: deferred Coordination: no ataxia with finger to nose testing , no tremor Sensory: intact and symmetric to light touch Muscle Tone: normal Muscle exam: No focal weakness Reflexes: Negative dukes signs, no ankle clonus Results & Data ([facility]) Vital Signs (Past 12 Hours) Vital Signs Temp Pulse Pulse Resp BP Pulse Ox 11/24/21 15:36 36.4 C L 53 L 18 119/70 98 11/24/21 14:19 55 L 11/24/21 11:54 36.5 C 18 96 11/24/21 07:28 36.5 C 56 L 18 126/73 96 11/24/21 06:09 56 L Laboratory Results UA Negative. CRP mildly elevated. Lyme pending. Diagnostic Findings MRI brain: Mild chronic microvascular ischemic changes. No evidence of acute stroke or acute intcranial process. CTA head and neck: No LVO or high grade stenosis Echo: Normal EF. (1) Syncope Syncope type: unspecified Qualified Code(s): R55 - Syncope and collapse
[2021-11-24] MEDS ORDERED: diphenhydrAMINE 50 MG/ML VIAL IV STA (17:07)
[2021-11-24] MEDS ORDERED: METOCLOPRAMIDE HCL INJ 5 MG/ML 2 ML VIAL IV STA (17:07)
--- NOTE | 2021-11-24 17:47 | Hospitalist Progress Note ---
Date of Service November 24, 2021 Assessment & Plan (1) Altered mental status: (2) Amnesia: Plan: Patient presenting from home after 2 possible syncopal events yesterday with amnesia of the events. In the ED, hemodynamically stable, head CT, head and neck CTAs unremarkable for acute findings Noted to have right eye proptosis on exam -- ?? 3rd nerve palsy. PERRL and EOMI, no other focal deficits noted Brain MRI and echo-unremarkable Monitor on telemetry for arrhythmias-no arrhythmias No obvious source of infection at this time --check Lyme, Anaplasma and Babesia smears Lyme's equivocal-doxycycline has been started Western blot is pending Check vitamin D and vitamin B12 levels.-B12 level is low ESR and CRP -CRP is normal at 2.80 Neuro consult-appreciate input and recommendation. Will have outpatient EEG Patient has been ambulating without any difficulties Severe migraine Takes Imitrex at home Imitrex did not help over here Received a dose of Toradol and will get intravenous Benadryl and metoclopramide Patient may be discharged this evening Equivocal Lyme titer Started on doxycycline Await Western blot Low vitamin B12 Will give 1 g IM and 1000 mcg orally as an outpatient (3) Elbow contusion: Plan: Right elbow and right humerus x-rays negative for fracture RICE therapy, Tylenol (4) Barretts esophagus: Plan: Continue PPI (5) Dyslipidemia: Plan: Continue statin (6) DVT prophylaxis: Plan: SQ Lovenox Admission and Anticipated Discharge Date Admission Date: November 23, 2021 Subjective 11/24/2021 The patient was seen and examined in medical telemetry unit She has been complaining of severe migraine with a little visual aura Denies any numbness and or tingling involving any of the extremities No weakness involving any side of the body No nausea and or vomiting and denies any loss of memory Review of Systems Review of Systems: All systems reviewed and are unremarkable except as noted below Neurologic: No focal neurodeficit Physical Exam Physical Exam: Lying in bed with severe migraine attack Constitutional: well developed, well nourished, + ill appearing and + obese Eyes: Closed ENMT: external ear and nose normal, oropharynx normal Neck: trachea midline, no thyromegaly Respiratory: no respiratory distress Auscultation: lungs clear to auscultation bilaterally Cardiovascular: Rate/Rhythm: regular rate and regular rhythm; not tachycardic Heart Sounds: normal S1 and normal S2; no murmur Extremities: no edema Gastrointestinal (Abdomen): Inspection/Auscultation: normal bowel sounds; abdomen not distended Percussion/Palpation: abdomen soft; abdomen nontender Musculoskeletal: No acute arthritis in any joint Neurologic: Alert, awake and oriented x3. No focal sensory or no motor deficit appreciated Psychiatric: A+Ox3, euthymic affect Lymphatic: no cervical or axillary lymphadenopathy Results & Data Results & Data ([facility]) Vital Signs (Past 12 Hours) Vital Signs Temp Pulse Pulse Resp BP Pulse Ox 11/24/21 15:36 36.4 C L 53 L 18 119/70 98 11/24/21 14:19 55 L 11/24/21 11:54 36.5 C 18 96 11/24/21 07:28 36.5 C 56 L 18 126/73 96 11/24/21 06:09 56 L Laboratory Results Short CBC 11/24/21 Range/Units 06:39 WBC 5.83 (4.8-10.8) K/uL Hgb 13.3 (12.0-16.0) g/dL Hct 40.8 (37-47) % Plt Count 213 (130-400) K/uL BMP 11/24/21 06:39 Sodium 137 Potassium 3.7 Chloride 106 Carbon Dioxide 26 BUN 13 Creatinine 0.72 Glucose 96 Calcium 7.8 L Cardiac Enzymes 11/23/21 11/24/21 Range/Units 19:30 06:39 Total Creatine Kinase 207 H 162 (26-192) U/L Medications Administered Current Inpatient Medications Acetaminophen (Acetaminophen 325 Mg Tab) 650 mg PO Q4H PRN PRN Reason: Pain or Fever Stop: 12/23/21 17:16 Last Admin: 11/24/21 12:01 Dose: 650 mg Documented by: Atorvastatin Calcium (Atorvastatin 40 Mg Tab) 40 mg PO HS [facility] Stop: 12/23/21 20:59 Last Admin: 11/24/21 00:16 Dose: 40 mg Documented by: Cyanocobalamin (Cyanocobalamin (B-12) 500 Mcg Tablet) 1,000 mcg PO QAM [facility] Stop: 12/23/21 21:34 Last Admin: 11/24/21 08:06 Dose: 1,000 mcg Documented by: Doxycycline Hyclate (Doxycycline Hyclate 100 Mg Cap) 100 mg PO BID [facility]ALA Stop: 12/03/21 21:29 Last Admin: 11/24/21 08:07 Dose: 100 mg Documented by: Enoxaparin Sodium (Enoxaparin Inj 40 Mg/0.4 Ml Syr) 40 mg SQ Q24H [facility] Stop: 12/23/21 17:59 Last Admin: 11/24/21 17:15 Dose: 40 mg Documented by: Ondansetron HCl (Ondansetron Inj 2 Mg/Ml 2 Ml Vial) 4 mg IV Q6H PRN PRN Reason: Nausea Stop: 12/23/21 17:16 Pantoprazole Sodium (Pantoprazole 40 Mg Tab) 40 mg PO BIDM [facility] Stop: 12/24/21 07:59 Last Admin: 11/24/21 17:14 Dose: 40 mg Documented by: Trazodone HCl (Trazodone Hcl 100 Mg Tab) 100 mg PO HS [facility] Stop: 12/23/21 20:59 Last Admin: 11/24/21 00:17 Dose: 100 mg Documented by:
[2021-11-24] MEDS ORDERED: CYANOCOBALAMIN 1000 MCG/ML VIAL IM STA (18:26)
[2021-11-24] MEDS ORDERED: CYANOCOBALAMIN 1000 MCG/ML VIAL IM SCH (18:30)
--- NOTE | 2021-11-24 22:18 | Discharge Summary ---
Date of Service November 24, 2021 Admission HPI Per Admitting Provider 76-year-old female PMH dyslipidemia, Alonso's esophagus, osteoporosis, depression, and other problems listed below who presents the ED for evaluation of fall and altered mental status. Patient reports she has no recollection of the events of yesterday, therefore history is obtained from patient's who is the bedside. He states that the patient was in her usual state of health yesterday morning and afternoon. In the evening, he heard a loud crash come from the kitchen and he then found his on the floor surrounded by broken dishes. She was awake at that time however was crying in pain due to right elbow discomfort. He was able to help her up however she was very weak. He then helped her into the recliner chair. Shortly after, he was in another room and heard another loud noise and again found her on the floor. She was still complaining of her right elbow hurting. He offered to take her to the hospital however she did not want to go. She said that she wanted to lay down in bed. Patient slept throughout most of the night however did get up once to take some Aleve and go to the bathroom. No further falls reported. Patient reports that today her right elbow continues to hurt and she " just does not feel right". denies noticing any unilateral weakness, facial droop or drooling. Patient reports that last week she was having some dysuria and hematuria and took Bactrim for 5 days. She reports that this was from an old prescription that she and her finished. Reports urinary symptoms have resolved. No fevers or chills. Also noted that patient's trazodone was increased from 50mg --> 100mg about 1 month ago. Patient also prescribed Fioricet and Xanax. Patient reports he took 1 Fioricet 2 days ago, does not remember the last time she took Xanax. In the ED, patient is hemodynamically stable. She had extensive imaging completed that was unremarkable for acute findings. Labs are unremarkable. She was given IVF. Admission Exam Per Admitting Provider Constitutional: WD/WN, vitals as above Eyes: PERRL, conjunctivae normal, anicteric sclerae + eyelid abnormality (right eyelid ptosis ) ENMT: external ear and nose normal, oropharynx normal Respiratory: normal respiratory effort, lungs clear to auscultation Cardiovascular: Rate/Rhythm: regular rate and regular rhythm Vessels: normal peripheral pulses Extremities: no edema Gastrointestinal (Abdomen): normal bowel sounds, soft, nontender, no hepatosplenomegaly Musculoskeletal: no cyanosis or clubbing, extremities motor strength 5/5 tenderness to palpation of right elbow Skin: no rashes, warm and dry Neurologic: PERRL, EOMI, accommodation nl, no face palsy, no dysarthria awake Motor/Sensory: no pronator drift Coordination: normal ugzesi-tf-gjce test and normal pejj-pl-arnm test Psychiatric: A+Ox3, euthymic affect Principal Diagnosis Severe migraine, change in mental status-improved,syncope Discharge Exam Lying in bed with severe migraine attack Constitutional well developed, well nourished, + ill appearing and + obese ENMT external ear and nose normal, oropharynx normal Neck trachea midline, no thyromegaly Respiratory no respiratory distress Auscultation: lungs clear to auscultation bilaterally Cardiovascular Rate/Rhythm: regular rate and regular rhythm; not tachycardic Heart Sounds: normal S1 and normal S2; no murmur Extremities: no edema Gastrointestinal (Abdomen) Inspection/Auscultation: normal bowel sounds; abdomen not distended Percussion/Palpation: abdomen soft; abdomen nontender Psychiatric A+Ox3, euthymic affect Lymphatic no cervical or axillary lymphadenopathy Discharge Data Allergies Allergy/AdvReac Type Severity Reaction Status Date / Time aspirin AdvReac Intermediate Stomach Verified 04/10/21 01:08 problems and bleeding Consultations 11/23/21 14:30 ED Decision to Admit Stat 11/23/21 17:17 Consult Neurology Routine Ordered Studies 11/23/21 11:31 CT cervical spine wo con Stat CT head/brain wo con Stat 11/23/21 11:35 CT angio head w con Stat CT angio neck with con Stat CT chest diagnostic w con Stat 11/23/21 16:35 MR brain wo/w con Routine Hospital Course (1) Altered mental status: (2) Amnesia: Patient presenting from home after 2 possible syncopal events yesterday with amnesia of the events. In the ED, hemodynamically stable, head CT, head and neck CTAs unremarkable for acute findings Noted to have right eye proptosis on exam -- ?? 3rd nerve palsy. PERRL and EOMI, no other focal deficits noted Brain MRI and echo-unremarkable Monitor on telemetry for arrhythmias-no arrhythmias No obvious source of infection at this time --check Lyme, Anaplasma and Babesia smears Lyme's equivocal-doxycycline has been started Western blot is pending Check vitamin D and vitamin B12 levels.-B12 level is low ESR and CRP -CRP is normal at 2.80 Neuro consult-appreciate input and recommendation. Will have outpatient EEG Patient has been ambulating without any difficulties Severe migraine Takes Imitrex at home Imitrex did not help over here Received a dose of Toradol and will get intravenous Benadryl and metoclopramide Patient may be discharged this evening Equivocal Lyme titer Started on doxycycline Await Western blot Low vitamin B12 Will give 1 g IM and 1000 mcg orally as an outpatient (3) Elbow contusion: Right elbow and right humerus x-rays negative for fracture RICE therapy, Tylenol (4) Barretts esophagus: Continue PPI (5) Dyslipidemia: Continue statin (6) DVT prophylaxis: SQ Lovenox Total Time Total Time Spent Total Time Spent (In Minutes): 35 minutes Discharge Plan Discharge Items Patient Disposition: Home - Self-Care Reason For Visit: AMS Discharge Diagnosis: Severe migraine, change in mental status-improved,syncope Condition on Discharge: Good Activity: Resume your previous activity Non-emergency contact: Primary Care Provider Call non-emergency contact if: you have any medication questions and your symptoms worsen Follow-up/Referrals: Remedios Kohli DO [Primary Care Provider] - (Your doctor's office will call you with an appointment within 7 days) Diet: Heart Healthy Addtl Attending Provider Instructions: Please take precautions to avoid fall especially Finish the course of doxycycline until you are told to stop it Will need to take vitamin B12 as an outpatient Pending Studies at Discharge: No Stand-Alone Forms: My [employer], Smoking Cessation Medications and DC Order Prescriptions: New doxycycline hyclate 100 mg Capsule 100 mg PO BID Qty: 26 RF: 0 cyanocobalamin (vitamin B-12) 500 mcg Tablet 1,000 mcg PO QAM Qty: 30 RF: 0 Continued atorvastatin 40 mg tablet 40 mg PO HS RF: 0 omeprazole 20 mg capsule,delayed release(DR/EC) 20 mg PO BIDM RF: 0 sumatriptan succinate 25 mg Tablet 25 mg PO DIRECTED PRN (Reason: Migraine Headache) RF: 0 alprazolam 0.25 mg tablet 0.25 mg PO TID PRN (Reason: Anxiety) RF: 0 epinephrine 0.3 mg/0.3 mL auto-injector 0.3 mg IM UD PRN (Reason: Allergic Reaction) RF: 0 trazodone 100 mg Tablet 100 mg PO HS RF: 0 Prolia 60 mg/mL syringe 60 mg SUBCUT Q6M RF: 0 hchbpervha-fothmcxbruolz-xvbe 50-325-40 mg tablet 1 tab PO Q6H PRN (Reason: Headache) RF: 0 Discharge Orders: Discharge Order (Routine); Ordered 11/24/21 Ordered By: Evin Roman Admission Data Admit Date/Time: 11/23/21 14:52 Attending Provider: Evin Roman Admit Provider: Bridget Ricardo Primary Care Provider: Remedios Kohli Other Providers: Bridget Ricardo ; Lionel Godoy Other Interventions: Discharge Summary Assessment (RN) Last Done: 11/24/21 18:18
== END 2021-11-24 19:15 | disposition home or self-care (01) ==
LOC: 2W 11:12 → EDINP 11:12 → ED 11:12 → SUATTDRO 14:52 → 2W 20:08

== ENCOUNTER 2022-12-06 11:54 | Inpatient (IN) ==
--- NOTE | 2022-12-06 13:27 | Emergency Department Note ---
History of Present Illness General Chief complaint: Altered Mental Status Time Seen by Provider: 12/06/22 13:09 Source: patient, RN notes reviewed and old records reviewed Mode of arrival: ambulatory Limitations: no limitations History of Present Illness Maximum Pain Intensity: 4 This patient is a 77-year-old female who woke up this morning at 1030 and was confused she is repetitive and she keeps saying " am missing something and I just cannot find it". Her says she has been treated for recent UTI and apparently is on Cipro. She was recently hospital for confusion as well has significant work-up which was unremarkable including MRI. Her says she is normally not confused. She had no focal numbness weakness. no difficulty speaking or swallowing. No change in vision. no headache, neck pain or stiffness. no cough or syncope. No fever or chills Home Medications Medication Instructions Recorded Confirmed Type atorvastatin 40 mg tablet 40 mg PO HS 02/04/19 12/06/22 History omeprazole 20 mg capsule,delayed 20 mg PO BIDM 02/04/19 12/06/22 History release alprazolam 0.25 mg tablet 0.25 mg PO TID PRN Anxiety 11/23/21 12/06/22 History ltpsmkjekd-wplksyapfismf-zzzfiyrk 1 tab PO Q6H PRN Headache 11/23/21 12/06/22 History 50 mg-325 mg-40 mg tablet trazodone 100 mg tablet 100 mg PO HS 11/23/21 12/06/22 History cyanocobalamin (vitamin B-12) 500 1,000 mcg PO QAM #30 tabs 11/24/21 12/06/22 Rx mcg tablet Allergies Allergy/AdvReac Type Severity Reaction Status Date / Time aspirin AdvReac Intermediate Stomach Verified 04/10/21 01:08 problems and bleeding Past Med/Surg History Medical History (Updated 12/06/22 @ 16:00 by Eitan Wall MD) Anxiety Barretts esophagus CKD (chronic kidney disease), stage III Cystocele S/p repair Dyslipidemia GERD (gastroesophageal reflux disease) H/O urinary tract infection Osteoporosis Surgical History S/P left knee arthroscopy S/P BELA (total abdominal hysterectomy) S/P tonsillectomy and adenoidectomy S/P tubal ligation Family History Father Cancer Mother Cancer Social History Smoking Status: Unknown if ever smoked Hx Alcohol Use: Yes Alcohol type: beer and hard liquor Alcohol Intake Frequency: 2-4 x/Month Hx Substance Use: No Preferred Language: Slovak Communication Ability: Effective 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 Beliefs That Will Affect Care: None Current Living Situation: Family Current Living Situation Comment: and daughter Feels Safe at Home: Yes Assistive Devices: Denture - Upper and Denture - Lower Review of Systems A total of 10 systems reviewed and were otherwise negative Physical Exam Vital Signs Vital Signs - 24 hr 12/06/22 12:15 12/06/22 12:15 12/06/22 12:45 Temperature 36.6 C Temperature Source Oral Pulse Rate 63 56 L Pulse Rate [Apical] Pulse Rhythm Regular Pulse Rhythm [Apical] Pulse Strength Normal Pulse Strength [Apical] Respiratory Rate 17 Respiratory Effort / Characteristics Non-Labored Spontaneous Respiratory Depth Normal Respiratory Pattern Blood Pressure 128/67 Blood Pressure [Right Arm] Blood Pressure Mean 87 Blood Pressure Mean [Right Arm] Blood Pressure Position Lying Blood Pressure Position [Right Arm] Pulse Oximetry 93 93 Oxygen Delivery Method Room Air Room Air Sepsis Recent Fever Within 48 Hours No Sepsis New/Unexplained Change in Mental Status Yes Sepsis Action Taken by Nursing No Action Required 12/06/22 14:34 12/06/22 14:34 12/06/22 14:33 Temperature Temperature Source Pulse Rate 60 Pulse Rate [Apical] 61 60 Pulse Rhythm Regular Pulse Rhythm [Apical] Regular Regular Pulse Strength Pulse Strength [Apical] Normal Normal Respiratory Rate 18 18 18 Respiratory Effort / Characteristics Non-Labored Spontaneous Non-Labored Spontaneous Respiratory Depth Normal Normal Respiratory Pattern Regular Blood Pressure Blood Pressure [Right Arm] 135/69 135/69 Blood Pressure Mean Blood Pressure Mean [Right Arm] 91 91 Blood Pressure Position Blood Pressure Position [Right Arm] Lying Pulse Oximetry 99 98 98 Oxygen Delivery Method Room Air Room Air Sepsis Recent Fever Within 48 Hours Sepsis New/Unexplained Change in Mental Status Sepsis Action Taken by Nursing 12/06/22 15:30 Temperature Temperature Source Pulse Rate Pulse Rate [Apical] 56 L Pulse Rhythm Pulse Rhythm [Apical] Pulse Strength Pulse Strength [Apical] Respiratory Rate 17 Respiratory Effort / Characteristics Non-Labored Spontaneous Respiratory Depth Normal Respiratory Pattern Blood Pressure Blood Pressure [Right Arm] 135/69 Blood Pressure Mean Blood Pressure Mean [Right Arm] 91 Blood Pressure Position Blood Pressure Position [Right Arm] Lying Pulse Oximetry 98 Oxygen Delivery Method Room Air Sepsis Recent Fever Within 48 Hours Sepsis New/Unexplained Change in Mental Status Sepsis Action Taken by Nursing General: Well developed well nourished older female who appears in no acute distress, breathing comfortably on room air. Normal speech. She answers some questions appropriately but seems confused about others speech is not slurred. Her memory is off according to her she cannot remember why she came here. HEENT: Normal cephalic atraumatic. Pupils are equal round and reactive to light. Extraocular movements are intact. Oropharynx is pink with moist mucous membranes. No swelling of the mouth lips or tongue. Neck: Supple with a midline trachea. No meningeal signs or stiffness, no JVD or bruits. No Stridor. Chest: Clear to auscultation bilaterally. No wheezes or rhonchi. No increased work of breathing. Heart: Regular rate and rhythm without murmurs or gallops. Abdomen: Soft nontender, nondistended without rebound guarding or rigidity. Extremities: No cyanosis clubbing or edema. No calf tenderness or assymetry Spine/Back. Non tender to palpation. No CVA tenderness Skin: Good turgor without rashes. Neurologic exam: Cranial nerves two through 12 are intact. Motor and sensation are intact and symmetrical throughout. No tremor Course Administered Medications Discontinued Medications Sodium Chloride (Nss 1000ml) 500 mls @ 999 mls/hr IV .Q31M [facility] Stop: 12/06/22 14:00 Last Infusion: 12/06/22 15:49 Dose: 0 mls/hr Documented By: Admin: 12/06/22 13:58 Dose: 999 mls/hr Documented By: [facility] Medical Decision Making Differential Diagnosis Sepsis, intracranial process, dehydration, electrolyte or metabolic abnormality malady, medication side effect, toxicologic, Medical Records Attestation: I reviewed the patient's medical records. Home Medications Current Medication List: was personally reviewed by me Laboratory Data Attestation: I reviewed the patient's lab results. 12/06/22 12:10 12/06/22 12:10 Lab Results 12/06/22 12/06/22 12/06/22 Range/Units 12:10 12:10 12:10 WBC 5.74 (4.8-10.8) K/ul RBC 4.30 (4.20-5.40) M/uL Hgb 13.2 (12.0-16.0) g/dl Hct 38.6 (37.0-47.0) % MCV 89.8 (80.0-100.0) fL MCH 30.7 (25.0-34.0) pg MCHC 34.2 (32.0-36.0) g/dL RDW Std Deviation 42.5 (36.4-46.3) fL RDW Coeff of Carlos 12.9 (11.5-14.5) % Plt Count 220 (130-400) K/uL MPV 10.7 (9.4-12.4) fL Immature Gran % (Auto) 0.5 % Neut % (Auto) 65.0 % Lymph % (Auto) 22.1 % [place] % (Auto) 8.2 % Eos % (Auto) 3.7 % Baso % (Auto) 0.5 % Neut # (Auto) 3.73 (1.40-6.50) K/uL Lymph # (Auto) 1.27 (1.2-3.4) K/uL [place] # (Auto) 0.47 (0.11-0.59) K/uL Eos # (Auto) 0.21 (0-0.50) K/uL Baso # (Auto) 0.03 (0-0.2) K/uL Immature Gran # (Auto) 0.03 (0.01-0.20) K/uL Sodium 139 (136-145) mmol/L Potassium 4.0 (3.5-5.1) mmol/L Chloride 107 (98-107) mmol/L Carbon Dioxide 26 (21-32) mmol/L Anion Gap 6 (3-11) BUN 19 (6-23) mg/dl Creatinine 0.86 (0.6-1.2) mg/dl Est Cr Clr Drug Dosing Not Reportable Est GFR ( Amer) 76.6 ml/min Est GFR (Non-Af Amer) 66.1 ml/min BUN/Creatinine Ratio 22.1 H (10-20) Glucose 99 (70-99(Fasting)) mg/dl POC Glucose (70-99) mg/dl Lactate (0.4-2.0) mmol/L Calcium 9.0 (8.6-10.3) mg/dl Magnesium 2.0 (1.7-2.4) mg/dl Total Bilirubin 0.4 (0.2-1.0) mg/dl Direct Bilirubin 0.0 (0-0.2) mg/dl AST 17 (13-39) U/L ALT 16 (7-52) U/L Alkaline Phosphatase 52 (34-104) U/L Troponin I High Sens 4.3 (0-14) pg/ml C-Reactive Protein < 0.50 (0-0.5) mg/dl Total Protein 6.3 (6.0-8.3) gm/dl Albumin 3.9 (3.4-5.0) gm/dl Procalcitonin < 0.05 (0-0.5) ng/ml Urine Color Urine Appearance (Clear) Urine pH (4.5-7.5) Ur Specific [place] (1.000-1.030) Urine Protein (Negative) Urine Glucose (UA) (Negative) Urine Ketones (Negative) Urine Blood (Negative) Urine Nitrite (Negative) Urine Bilirubin (Negative) Urine Urobilinogen (Negative) Ur Leukocyte Esterase (Negative) SARS-CoV-2, RNA, NAAT (NEGATIVE) 12/06/22 12/06/22 12/06/22 Range/Units 13:28 13:40 13:52 WBC (4.8-10.8) K/ul RBC (4.20-5.40) M/uL Hgb (12.0-16.0) g/dl Hct (37.0-47.0) % MCV (80.0-100.0) fL MCH (25.0-34.0) pg MCHC (32.0-36.0) g/dL RDW Std Deviation (36.4-46.3) fL RDW Coeff of Carlos (11.5-14.5) % Plt Count (130-400) K/uL MPV (9.4-12.4) fL Immature Gran % (Auto) % Neut % (Auto) % Lymph % (Auto) % [place] % (Auto) % Eos % (Auto) % Baso % (Auto) % Neut # (Auto) (1.40-6.50) K/uL Lymph # (Auto) (1.2-3.4) K/uL [place] # (Auto) (0.11-0.59) K/uL Eos # (Auto) (0-0.50) K/uL Baso # (Auto) (0-0.2) K/uL Immature Gran # (Auto) (0.01-0.20) K/uL Sodium (136-145) mmol/L Potassium (3.5-5.1) mmol/L Chloride (98-107) mmol/L Carbon Dioxide (21-32) mmol/L Anion Gap (3-11) BUN (6-23) mg/dl Creatinine (0.6-1.2) mg/dl Est Cr Clr Drug Dosing Est GFR ( Amer) ml/min Est GFR (Non-Af Amer) ml/min BUN/Creatinine Ratio (10-20) Glucose (70-99(Fasting)) mg/dl POC Glucose 191 H (70-99) mg/dl Lactate 1.5 (0.4-2.0) mmol/L Calcium (8.6-10.3) mg/dl Magnesium (1.7-2.4) mg/dl Total Bilirubin (0.2-1.0) mg/dl Direct Bilirubin (0-0.2) mg/dl AST (13-39) U/L ALT (7-52) U/L Alkaline Phosphatase (34-104) U/L Troponin I High Sens (0-14) pg/ml C-Reactive Protein (0-0.5) mg/dl Total Protein (6.0-8.3) gm/dl Albumin (3.4-5.0) gm/dl Procalcitonin (0-0.5) ng/ml Urine Color Yellow Urine Appearance Clear (Clear) Urine pH 7.0 (4.5-7.5) Ur Specific [place] 1.015 (1.000-1.030) Urine Protein Negative (Negative) Urine Glucose (UA) Negative (Negative) Urine Ketones Negative (Negative) Urine Blood Negative (Negative) Urine Nitrite Negative (Negative) Urine Bilirubin Negative (Negative) Urine Urobilinogen Negative (Negative) Ur Leukocyte Esterase Negative (Negative) SARS-CoV-2, RNA, NAAT (NEGATIVE) 12/06/22 Range/Units 13:52 WBC (4.8-10.8) K/ul RBC (4.20-5.40) M/uL Hgb (12.0-16.0) g/dl Hct (37.0-47.0) % MCV (80.0-100.0) fL MCH (25.0-34.0) pg MCHC (32.0-36.0) g/dL RDW Std Deviation (36.4-46.3) fL RDW Coeff of Carlos (11.5-14.5) % Plt Count (130-400) K/uL MPV (9.4-12.4) fL Immature Gran % (Auto) % Neut % (Auto) % Lymph % (Auto) % [place] % (Auto) % Eos % (Auto) % Baso % (Auto) % Neut # (Auto) (1.40-6.50) K/uL Lymph # (Auto) (1.2-3.4) K/uL [place] # (Auto) (0.11-0.59) K/uL Eos # (Auto) (0-0.50) K/uL Baso # (Auto) (0-0.2) K/uL Immature Gran # (Auto) (0.01-0.20) K/uL Sodium (136-145) mmol/L Potassium (3.5-5.1) mmol/L Chloride (98-107) mmol/L Carbon Dioxide (21-32) mmol/L Anion Gap (3-11) BUN (6-23) mg/dl Creatinine (0.6-1.2) mg/dl Est Cr Clr Drug Dosing Est GFR ( Amer) ml/min Est GFR (Non-Af Amer) ml/min BUN/Creatinine Ratio (10-20) Glucose (70-99(Fasting)) mg/dl POC Glucose (70-99) mg/dl Lactate (0.4-2.0) mmol/L Calcium (8.6-10.3) mg/dl Magnesium (1.7-2.4) mg/dl Total Bilirubin (0.2-1.0) mg/dl Direct Bilirubin (0-0.2) mg/dl AST (13-39) U/L ALT (7-52) U/L Alkaline Phosphatase (34-104) U/L Troponin I High Sens (0-14) pg/ml C-Reactive Protein (0-0.5) mg/dl Total Protein (6.0-8.3) gm/dl Albumin (3.4-5.0) gm/dl Procalcitonin (0-0.5) ng/ml Urine Color Urine Appearance (Clear) Urine pH (4.5-7.5) Ur Specific [place] (1.000-1.030) Urine Protein (Negative) Urine Glucose (UA) (Negative) Urine Ketones (Negative) Urine Blood (Negative) Urine Nitrite (Negative) Urine Bilirubin (Negative) Urine Urobilinogen (Negative) Ur Leukocyte Esterase (Negative) SARS-CoV-2, RNA, NAAT NEGATIVE (NEGATIVE) Imaging Data Attestation: I personally reviewed and interpreted this imaging study as follows: My Impression: CT of the headno acute infiltrate, failure, pneumothorax seen Chest x-rayno acute infiltrate, failure, pneumothorax seen Radiologist's Impression: Chest X-Ray 12/06/22 13:18 XR chest 1V portable CLINICAL HISTORY: Sepsis TECHNIQUE: Single frontal radiograph of the chest was obtained. Comparison: Comparison is made to chest radiograph 11/23/2021 FINDINGS: No lines and tubes are seen. The cardiomediastinal silhouette is normal. The lungs are clear. No evidence of pleural effusion or pneumothorax. IMPRESSION: No acute abnormalities and in particular no radiographic evidence of pneumonia. ACT 112: Negative or not required by law. Electronically signed by: Babatunde Burrell M.D. 12/06/2022 2:[address] 12/06/22 13:19 CT head/brain wo con CLINICAL HISTORY: altered mental status Technique: Contiguous axial CT images of the head were acquired from the base of the skull to the vertex without intravenous contrast administration. Images were viewed in brain, subdural and bone windows. Automated dose lowering techniques and/or adjustment according to patient size were utilized for this exam. Comparison: None available at the time of this dictation. Findings: The ventricles, basal cisterns, and cerebral sulci are normal. There is no acute intracranial hemorrhage or evidence of acute territorial infarction. Neither mass effect, shift of the midline structures, nor abnormal extra-axial fluid collections are shown. Imaged portions of the paranasal sinuses and mastoid air cells are clear. The orbits appear normal. There are no acute fractures of the calvaria or scalp swelling. Impression: No acute intracranial hemorrhage, no evidence of acute territorial infarction or other acute intracranial disease process. ACT 112: Negative or not required by law. Electronically signed by: Babatunde Burrell M.D. 12/06/2022 3:29 PM ECG Data Attestation: I personally reviewed and interpreted this ECG as follows: Indication: + altered mental status Rate (beats per minute): 64 Rhythm: + normal sinus ECG Intervals/blocks: + Normal QRS, + Normal QT and + Normal ME ECG Bernie: + Normal ECG ST segments: + Normal ST segments ECG Findings: no PACs or no PVCs Comparison ECG Date: from (11/24/21) Change: no significant change MDM Narrative This patient is a 77-year-old female who comes in after having confusion that started this morning when she woke up at 1030 she was fine yesterday according to . He tells me she never had this before however she was recently hospitalized for confusion. We also looked at some of her old records and she apparently was started on Cipro for possible UTI from an urgent care center although her urine culture was negative. It may be that the Cipro is actually causing her symptoms. I did a CAT scan of her head is full septic work-up she was given normal saline bolus 500 cc she was reassessed frequently. She has no fever or white count to suggest infection. She has no significant acrylate or metabolic abnormalities. Lactic acid was within normal limits. EKG does not suggest that he cardiac event. Chest x-ray was unremarkable. Urinalysis is unremarkable. CAT scan of her head was unremarkable. I do think she needs to be admitted/observed again it may be the Cipro that is aggravating her causing this. At this point, I do not suspect meningitis or encephalitis. Looking back through her chart, she did have a significant neurologic work-up done about 2 weeks ago. I have consulted the [facility] hospitalist and discussed the case at length and she will be admitted/observed for these measures Continuous cardiac monitoring: Orders placed in EMR for continuous cardiac monitoring: Upon my evaluation patient noted to be normal sinus rhythm the rate of 60. Impression & Plan Altered mental status, Acute confusion, Lab test negative for COVID-19 virus, Medication side effect Discharge Plan Visit Data Chief Complaint: Altered Mental Status ED Provider: Eitan Wall Discharge Problem: Altered mental status, Acute confusion, Lab test negative for COVID-19 virus, Medication side effect Forms Stand Alone Forms: My [facility] [place] Prescriptions Prescriptions: No Action atorvastatin 40 mg tablet 40 mg PO HS omeprazole 20 mg capsule,delayed release(DR/EC) 20 mg PO BIDM alprazolam 0.25 mg tablet 0.25 mg PO TID PRN (Reason: Anxiety) trazodone 100 mg Tablet 100 mg PO HS rokdaivlcn-iophdimrkatmu-ghes 50-325-40 mg tablet 1 tab PO Q6H PRN (Reason: Headache) cyanocobalamin (vitamin B-12) 500 mcg Tablet 1,000 mcg PO QAM Qty: 30 0RF Referrals Referrals: Remedios Kolhi DO [Primary Care Provider] -
[2022-12-06] MEDS ORDERED: SODIUM CHLORIDE 0.9% 1000ML 500 ML IV SCH (13:30)
[2022-12-06 14:00] LABS: Basophils # (auto) 0.03 K/uL (0-0.2); Basophils % (auto) 0.5 %; Eosinophils # (auto) 0.21 K/uL (0-0.50); Eosinophils % (auto) 3.7 %; Hematocrit (blood only) 38.6 % (37.0-47.0); Hemoglobin 13.2 g/dl (12.0-16.0); Immature Granulocytes # (auto) 0.03 K/uL (0.01-0.20); Immature Granulocytes % (auto) 0.5 %; Lymphocytes # (auto) 1.27 K/uL (1.2-3.4); Lymphocytes % (auto) 22.1 %; Mean Corpuscular Hemoglobin 30.7 pg (25.0-34.0); Mean Corpuscular Hgb Conc 34.2 g/dL (32.0-36.0); Mean Corpuscular Volume 89.8 fL (80.0-100.0); Mean Platelet Volume 10.7 fL (9.4-12.4); Monocytes # (auto) 0.47 K/uL (0.11-0.59); Monocytes % (auto) 8.2 %; Neutrophils # (auto) 3.73 K/uL (1.40-6.50); Platelet Count 220 K/uL (130-400); RDW Coefficient of Variation 12.9 % (11.5-14.5); RDW Standard Deviation 42.5 fL (36.4-46.3); White Blood Count 5.74 K/ul (4.8-10.8)
[2022-12-06 14:11] LABS: Alanine Aminotransferase 16 U/L (7-52); Albumin Level 3.9 gm/dl (3.4-5.0); Alkaline Phosphatase 52 U/L (34-104); Anion Gap 6 (3-11); Aspartate Aminotransferase 17 U/L (13-39); BUN Creatinine Ratio 22.1 (10-20); Bilirubin,Total 0.4 mg/dl (0.2-1.0); Blood Urea Nitrogen 19 mg/dl (6-23); Carbon Dioxide 26 mmol/L (21-32); Chloride 107 mmol/L (98-107); Est GFR (African American) 76.6 ml/min; Est GFR (Non-African American) 66.1 ml/min; Glucose 99 mg/dl (70-99(Fasting)); Sodium 139 mmol/L (136-145); Total Protein 6.3 gm/dl (6.0-8.3)
[2022-12-06 14:13] LABS: Troponin I High Sensitivity 4.3 pg/ml (0-14)
[2022-12-06 14:47] LABS: Appearance Urine Clear (Clear); Bilirubin Urine Negative (Negative); Blood Urine Negative (Negative); Color Urine Yellow; Glucose Urine UA Negative (Negative); Ketones Urine Negative (Negative); Leukocyte Esterase Urine Negative (Negative); Nitrite Urine Negative (Negative); Protein Urine Negative (Negative); Specific Gravity Urine 1.015 (1.000-1.030); Urobilinogen Urine Negative (Negative)
--- NOTE | 2022-12-06 14:55 | XRay Report ---
XR chest 1V portable CLINICAL HISTORY: Sepsis TECHNIQUE: Single frontal radiograph of the chest was obtained. Comparison: Comparison is made to chest radiograph 11/23/2021 FINDINGS: No lines and tubes are seen. The cardiomediastinal silhouette is normal. The lungs are clear. No evid ence of pleural effusion or pneumothorax. IMPRESSION: No acute abnormalities and in particular no radiographic evidence of pneumonia. ACT 112: Negative or not required by law. Electronically signed by: Babatunde Burrell M.D. 12/06/2022 2:54 PM
[2022-12-06] MEDS ORDERED: POLYETHYLENE (MIRALAX) 17 GM PACK PO PRN (15:18)
[2022-12-06] MEDS ORDERED: MAGNESIUM HYDROXIDE SUSP 30 ML UDC PO PRN (15:18)
[2022-12-06] MEDS ORDERED: ONDANSETRON INJ 2 MG/ML 2 ML VIAL IV PRN (15:18)
[2022-12-06] MEDS ORDERED: ALUMINUM/MAGNESIUM SUSP 30 ML UDC PO PRN (15:18)
--- NOTE | 2022-12-06 15:25 | History & Physical Report ---
Date of Service December 06, 2022 Assessment & Plan (1) Altered mental status: (2) Dyslipidemia: (3) GERD (gastroesophageal reflux disease): (4) CKD (chronic kidney disease), stage III: (5) Anxiety: (6) UTI (urinary tract infection): Plan 77-year-old presents with AMS that has been quite persistent. Her stated that she has stated that she keeps 'searching' for things and 'just cant find things'. She describes feeling 'disconnected'. She is able to say that she doesn't feel right and can appreciate that. She has had some ambulatory dysfunction that started this morning. Her stated that she has not been sleeping well likely related to her UTI. No facial asymmetry, slurring speech. Recently seen in urgent care on 12/01 and being treated for UTI as she was having some with recent completion of Cipro. Recent increase of Trazodone dosing from 50 mg - 100 mg. Recent travel to [place]; had a nice trip visiting her daughter who lives there. No symptoms at that time. Does not appear toxic. No leukocytosis, No transaminitis, Procalcitonin, lactate unremarkable. Head CT today without acute intracranial disease process. CXR negative. ECHO 11/24/21: EF 55 to 60%, mild MR, mild TR, LV function normal. Denies vision or auditory changes, shortness of breath, chest pain, headache, nuchal rigidity or stiffness, no cough, no fever or chills, no rashes, dysphagia. Pt does not have fever, but if she would develop with headaches could consider empiric treatment for meningitis. Would revisit LP if no improvement. Altered mental status: Urinary tract infection: Was seen on 12/01 at urgent care started on Cipro and has two more days of treatment; will discontinue while here. Start Ceftriaxone as patient still symptomatic with dysuria and hematuria. Urine culture OPT without significant reported growth and unlikely to be accurate as already on abx Head CT negative; No neuro deficits No leukocytosis, Lactate, Procalcitonin, and Troponin negative Blood and urine culture ordered; pt already taking Cipro; will DC gentle IV fluids @ 60mL/hour Check TSH with Free T4 Vitamin B12 on 11/19/22: 358 Orthostatic BP's consider repeat ECHO if no improvement Hold Trazodone and Alprazolam for now as possible contributing factors Consider brain MRI if no improvement. Hyperglycemia: Serum glucose 191 in ED Will check A1C in AM Based on A1C; consider SSI if necessary Dyslipidemia: Takes atorvastatin; continue Most recent lipid panel: 04/2022: TG 78, HDL 73, LDL 97 Check in AM GERD: Takes omeprazole; continue Anxiety: Takes Alprazolam PRN; hold for now in case contributing to AMS Disposition: PCP: Dr. Kohli Code Status: DNR/DNI VTE Prophylaxis: Lovenox SQ I spent a total of 87 minutes coordinating, documenting, and providing care for this patient excluding time spent in the performance of separately billed services. All of the aforementioned completed while collaborating with the assigned attending physician for a full treatment plan. Please see their addendum for further details. History of Present Illness Chief Complaint: AMS Primary Care Provider: Remedios Kohli, 77-year-old presents with altered mental status that has been quite persistent. Her stated that she has stated that she keeps 'searching' for things and 'just cant find things'. She describes feeling 'disconnected'. She is able to say that she doesn't feel right and can appreciate that. She has had some ambulatory dysfunction that started this morning. Her stated that she has not been sleeping well likely related to her UTI. No facial asymmetry, slurring speech. On Tuesday, they went to a wedding and went to a hunting camp and had a normal day. Recently seen in urgent care on 12/01 and being treated for UTI as she was having some with recent completion of Cipro; due to complete course on 12/08. Recent travel to [place]; had a nice trip visiting her daughter who lives there. No symptoms at that time. If imaging remains normal and symptoms persist, may consider an LP and also empiric coverage for meningitis. Patient hyperglycemic in ED; will obtain A1C and achs blood sugar checks. Suspect hyperglycemia related to cystitis. Patient does not appear toxic. No leukocytosis, No transaminitis, Procalcitonin, lactate unremarkable. Head CT today revealed No acute intracranial hemorrhage, no evidence of acute territorial infarction or other acute intracranial disease process. CXR negative for acute cardiopulmonary process. ECHO 11/24/21: EF 55 to 60%, mild MR, mild TR, LV function normal. Denies vision or auditory changes, shortness of breath, chest pain, headache, nuchal rigidity or stiffness, no cough, no fever or chills, no rashes, dysphagia. Denies tobacco or recreational drug use. Pt denies tobacco and recreational drug use. She does consume alcohol, last drink before starting Cipro which was 7 days ago. On examination, patient able to focus on numerous conversations between myself asking questions and the attending physician. Attending completed a full neurologic examination with no deficits as outlined below in the addendum. Patient will be admitted for further evaluation management. Please see H&P for further details Allergies Allergy/AdvReac Type Severity Reaction Status Date / Time aspirin AdvReac Intermediate Stomach Verified 04/10/21 01:08 problems and bleeding Home Medications Medication Instructions Recorded Confirmed Type atorvastatin 40 mg tablet 40 mg PO HS 02/04/19 12/06/22 History omeprazole 20 mg capsule,delayed 20 mg PO BIDM 02/04/19 12/06/22 History release alprazolam 0.25 mg tablet 0.25 mg PO TID PRN Anxiety 11/23/21 12/06/22 History [id number]-istzxrrrubkaj-[id number] 1 tab PO Q6H PRN Headache 11/23/21 12/06/22 History 50 mg-325 mg-40 mg tablet trazodone 100 mg tablet 100 mg PO HS 11/23/21 12/06/22 History cyanocobalamin (vitamin B-12) 500 1,000 mcg PO QAM #30 tabs 11/24/21 12/06/22 Rx mcg tablet Past Med/Surg History Medical History (Updated 12/06/22 @ 16:00 by Eitan Wall MD) Anxiety Barretts esophagus CKD (chronic kidney disease), stage III Cystocele S/p repair Dyslipidemia GERD (gastroesophageal reflux disease) H/O urinary tract infection Osteoporosis Surgical History S/P left knee arthroscopy S/P BELA (total abdominal hysterectomy) S/P tonsillectomy and adenoidectomy S/P tubal ligation Family History Father Cancer Mother Cancer Social History Smoking Status: Never smoker Hx Alcohol Use: No Hx Substance Use: No Preferred Language: Croatian Communication Ability: Effective [employer] Required: No Beliefs That Will Affect Care: None Current Living Situation: Spouse Current Living Situation Comment: home with Feels Safe at Home: Yes Assistive Devices: Denture - Upper Review of Systems Review of Systems: Neuro: (-) Falls, trauma, slurred speech HEENT: (-) NEIL, (+) dizziness, (-) dysphagia, (-) visual or auditory changes CV: (-) CP, palpitations, swelling Resp: (-) SOB GI: (-) appetite changes, N/V/D, bowel changes : (+) urinary changes dysuria, hematuria Skin: (-) rashes Psych: (-) anxiety, depression Physical Exam Physical Exam: See Dr. Yin's physical examination in the addendum note. Results & Data Results & Data Vital Signs (Past 12 Hours) Vital Signs Temp Pulse Pulse Resp BP BP Pulse Ox 12/06/22 14:33 60 18 135/69 98 12/06/22 14:34 60 18 98 12/06/22 14:34 61 18 135/69 99 12/06/22 12:45 56 L 12/06/22 12:15 93 12/06/22 12:15 36.6 C 63 17 128/67 93 O2 Del Method 12/06/22 14:33 12/06/22 14:34 Room Air 12/06/22 14:34 Room Air 12/06/22 12:45 12/06/22 12:15 Room Air 12/06/22 12:15 Room Air Laboratory Results Short CBC 12/06/22 Range/Units 12:10 WBC 5.74 (4.8-10.8) K/ul Hgb 13.2 (12.0-16.0) g/dl Hct 38.6 (37.0-47.0) % Plt Count 220 (130-400) K/uL BMP 12/06/22 12:10 Sodium 139 Potassium 4.0 Chloride 107 Carbon Dioxide 26 BUN 19 Creatinine 0.86 Glucose 99 Calcium 9.0 Liver Function 12/06/22 Range/Units 12:10 Total Bilirubin 0.4 (0.2-1.0) mg/dl Direct Bilirubin 0.0 (0-0.2) mg/dl AST 17 (13-39) U/L ALT 16 (7-52) U/L Alkaline Phosphatase 52 (34-104) U/L Albumin 3.9 (3.4-5.0) gm/dl Urine 12/06/22 Range/Units 13:52 Urine Color Yellow Urine Appearance Clear (Clear) Urine pH 7.0 (4.5-7.5) Ur Specific Buhl 1.015 (1.000-1.030) Urine Protein Negative (Negative) Urine Glucose (UA) Negative (Negative) Diagnostic Findings Chest X-Ray 12/06/22 13:18 XR chest 1V portable CLINICAL HISTORY: Sepsis TECHNIQUE: Single frontal radiograph of the chest was obtained. Comparison: Comparison is made to chest radiograph 11/23/2021 FINDINGS: No lines and tubes are seen. The cardiomediastinal silhouette is normal. The lungs are clear. No evidence of pleural effusion or pneumothorax. IMPRESSION: No acute abnormalities and in particular no radiographic evidence of pneumonia. Electronically signed by: Babatunde Burrell M.D. 12/06/2022 2:[address] 12/06/22 13:19 CT head/brain wo con Findings: The ventricles, basal cisterns, and cerebral sulci are normal. There is no acute intracranial hemorrhage or evidence of acute territorial infarction. Neither mass effect, shift of the midline structures, nor abnormal extra-axial fluid collections are shown. Imaged portions of the paranasal sinuses and mastoid air cells are clear. The orbits appear normal. There are no acute fractures of the calvaria or scalp swelling. Impression: No acute intracranial hemorrhage, no evidence of acute territorial infarction or other acute intracranial disease process. Electronically signed by: Babatunde Burrell M.D. 12/06/2022 3:29 PM Code Status & VTE Plan Code Status Full Code in the event of cardiac or respiratory arrest VTE Prophylaxis Plan VTE Prophylaxis will be ordered: Yes Supervising Physician Co-Signing Physician Notes Ms. Hightower is a 77 year old female with pmhx (per chart and ) of HLP, GERD, Alonso esophagus, CKD III, osteoporosis, and anxiety. She presented from home with AMS. She is currently being treated for a UTI. Thus far work up is otherwise unrevealing. Ms Hightower was in her usual state of health. She recently fever, developed lower abdominal pain, burning dysuria and hematuria. She is being treated for a UTI with Cipro and has a few days left to complete the course. Urine culture obtained prior to starting abx failed to yield a causative organism. Prior to today she denies malaise, dizziness, lightheadedness, n/v, CP, sob, cough, congestion, soar throat, diarrhea, rash, or insect bites. Overall urinary symptoms have been improving and she no longer has f/c. She woke up this morning feeling weak and "disconnected." She notes she is confused. She denies focal weakness, change in vision, difficulty with word finding. Her has not noticed any slurred speech, facial asymmetry, or focal weakness. Ms. Hightower was admitted about a year ago for syncope and AMS. She and her state this episode is totally different from that. Her has never seen her confused like this. She is oriented to self and knows she is in a hospital. She can not name the hospital or even state the year. That having been said she is able to answer questions the PA is asking while following my instructions performing physical tasks for a neuro exam. Physical Exam: General: well developed and well nourished, non-toxic appearing, anxious Head: NC AT Eyes: PERRL, EOMI, anicteric sclera, no conjunctival injection, no nystagmus Nose: nares patent Mouth: MMM Neck: supple, trachea midline CV: RRR S1 S2 Pulm: CTA b/l Abd/GI: + BS, soft, ND, no guarding. Tender to deep palpation in the suprapubic region. : No pollack or purewick Ext: no pretibial edema MSK: normal bulk and tone Neuro: Strength is 4+ throughout, symmetric in all 4 extremities. CN II-XII intact. Sensation intact. No significant dysmetria on finger to nose or heel to manjarrez testing. Psych: anxious Skin: visible skin is warm, dry, and without rash. Pt not fully undressed for exam. # AMS: suspect d/t UTI, possibly in part d/t abx denies opiate use uses trazodone nightly, dose increased in September, also uses prn alprazolam denies significant EtOh use CTH negative for acute pathology no significant metabolic derangements on b/w. no VS to suggest anoxic brain injury or hypertensive encephalopathy change class of Abx to Ctx for now. There is no utility to checking urine studies at this point given mult days of abx f/u TSH, A1c, lipid panel hold Trazodone and Alprazolam # CKD III: monitor renal function, avoid nephrotoxins and hypotension # GERD, Alonso esophagus: no complaints at this time. Rest per attested note above
--- NOTE | 2022-12-06 15:30 | CT Scan Report ---
CT head/brain wo con CLINICAL HISTORY: altered mental status Technique: Contiguous axial CT images of the head were acquired from the base of the skull to the adrienne jocy without intravenous contrast administration. Images were viewed in brain, subdural and bone [facility]. Automated dose lowering techniques and/or adjustment according to patient size were utilized for this exam. Comparison: None available at the time of this dictation. Findings: The ventricles, basal cisterns, and cerebral sulci are normal. There is no acute intracranial hemorrh age or evidence of acute territorial infarction. Neither mass effect, shift of the midline structures , nor abnormal extra-axial fluid collections are shown. Imaged portions of the paranasal sinuses and mastoid air cells are clear. The orbits appear normal. There are no acute fractures of the calvaria or scalp swelling. Impression: No acute intracranial hemorrhage, no evidence of acute territorial infarction or other acute intracra nial disease process. ACT 112: Negative or not required by law. Electronically signed by: Babatunde Burrell M.D. 12/06/2022 3:29 PM
[2022-12-06 15:44] LABS: C Reactive Protein < 0.50 mg/dl (0-0.5)
[2022-12-06 16:22] LABS: Vitamin D, 25 Hydrox 23.6 ng/ml (30-100)
[2022-12-06] MEDS ORDERED: GLUCOSE 10 TAB/TUBE PO PRN (16:41)
[2022-12-06] MEDS ORDERED: GLUCOSE 40% GEL 15 GM TUBE PO PRN (16:41)
[2022-12-06] MEDS ORDERED: CARBOHYDRATES FOR HYPOGLYCEMIA PO PRN (16:41)
[2022-12-06] MEDS ORDERED: GLUCAGON FOR INJ 1 MG VIAL SQ PRN (16:41)
[2022-12-06] MEDS ORDERED: DEXTROSE 50% 50 ML SYRINGE IV PRN (16:41)
[2022-12-06] MEDS ORDERED: SODIUM CHLORIDE 0.9% 1000ML 1,000 ML IV SCH (17:00)
[2022-12-06] MEDS: ACETAMINOPHEN 325 MG TAB PO PRN (17:39)
[2022-12-06] MEDS: cefTRIAXone SODIUM 2,000 MG in DEXTROSE 5% 50 ML IV SCH (18:14)
--- NOTE | 2022-12-06 18:20 | Electrocardiogram Report ---
Test Reason : Blood Pressure : / mmHG Vent. Rate : 064 BPM Atrial Rate : 064 BPM P-R Int : 164 ms QRS Dur : 074 ms QT Int : 400 ms P-R-T Axes : 057 060 063 degrees QTc Int : 412 ms Normal sinus rhythm Normal ECG When compared with ECG of 24-NOV-2021 05:52, No significant change was found Confirmed by Carter Yee ([id number]) on 12/06/2022 6:20:18 PM Referred By: Confirmed By:Rene Yee
[2022-12-06] MEDS: ATORVASTATIN 40 MG TAB PO SCH (20:28)
[2022-12-06] MEDS: PANTOprazole 40 MG TAB PO SCH (20:28)
[2022-12-06] MEDS ORDERED: MELATONIN 3 MG TAB PO PRN (23:20)
[2022-12-07 07:30] LABS: Hematocrit (blood only) 38.6 % (37.0-47.0); Hemoglobin 13.1 g/dl (12.0-16.0); Mean Corpuscular Hemoglobin 30.5 pg (25.0-34.0); Mean Corpuscular Hgb Conc 33.9 g/dL (32.0-36.0); Mean Corpuscular Volume 89.8 fL (80.0-100.0); Mean Platelet Volume 10.3 fL (9.4-12.4); Platelet Count 225 K/uL (130-400); RDW Coefficient of Variation 12.9 % (11.5-14.5); RDW Standard Deviation 42.6 fL (36.4-46.3)
[2022-12-07 07:50] LABS: Albumin Globulin Ratio 1.8 (0.9-2); Albumin Level 3.8 gm/dl (3.4-5.0); BUN Creatinine Ratio 21.4 (10-20); Bilirubin,Total 0.4 mg/dl (0.2-1.0); Calcium 8.3 mg/dl (8.6-10.3); Est GFR (African American) 98.2 ml/min; Est GFR (Non-African American) 84.8 ml/min; Globulin 2.1 gm/dl (2.5-4.0); Phosphorus 3.6 mg/dl (2.5-4.9); Potassium 4.2 mmol/L (3.5-5.1); Total Protein 5.9 gm/dl (6.0-8.3)
[2022-12-07] MEDS: CYANOCOBALAMIN (B-12) 500 MCG TABLET PO SCH (08:18)
[2022-12-07] MEDS: ENOXAPARIN INJ 40 MG/0.4 ML SYR SQ SCH (08:19)
[2022-12-07] MEDS: PANTOprazole 40 MG TAB PO SCH ×2 (08:49→16:31)
[2022-12-07 11:07] LABS: Estimated Average Glucose 123 mg/dl; Hemoglobin A1C 5.9 % (4.5-5.6)
[2022-12-07 11:55] LABS: A calco-baum cmplx NotReported Not Detected (NotDetected); Bact fragilis Not Reported Not Detected (NotDetected); C auris Not Reported Not Detected (NotDetected); Calbicans Not Reported Not Detected (NotDetected); Candida glabrata Not Reported Not Detected (NotDetected); Candida krusei Not Reported Not Detected (NotDetected); Cneoformans/gatti Not Reported Not Detected (NotDetected); Cparapsilosis Not Reported Not Detected (NotDetected); Ctropicalis Not Reported Not Detected (NotDetected); E cloacae compx Not Reported Not Detected (NotDetected); Efaecalis Not Reported Not Detected (NotDetected); Efaecium Not Reported Not Detected (NotDetected); Enterobacterales Not Reported Not Detected (NotDetected); Escherichia coli Not Reported Not Detected (NotDetected); H influenzae Not Reported Not Detected (NotDetected); K aerogenes Not Reported Not Detected (NotDetected); Koxytoca Not Reported Not Detected (NotDetected); Kpneumoniae grp Not Reported Not Detected (NotDetected); Lmonocyt Not Reported Not Detected (NotDetected); N meningitidis Not Reported Not Detected (NotDetected); P aeruginosa Not Reported Not Detected (NotDetected); Proteus spp Not Reported Not Detected (NotDetected); Salmonella spp Not Reported Not Detected (NotDetected); Smarcescens Not Reported Not Detected (NotDetected); Staph lugdunensis Not Reported Not Detected (NotDetected); Staph spp. Not Reported DETECTED (NotDetected); Staphaureus Not Reported Not Detected (NotDetected); Staphepi Not Reported Not Detected (NotDetected); Stenmaltophilia Not Reported Not Detected (NotDetected); Strep agal(GrpB) Not Reported Not Detected (NotDetected); Strep pneum Not Reported Not Detected (NotDetected); Strep pyog (GrpA) Not Reported Not Detected (NotDetected); Strep spp Not Reported Not Detected (NotDetected)
[2022-12-07 12:01] LABS: Staphylococcus spp. DETECTED (NotDetected)
--- NOTE | 2022-12-07 13:57 | Hospitalist Progress Note ---
Date of Service December 07, 2022 Assessment & Plan (1) Altered mental status: (2) Dyslipidemia: (3) GERD (gastroesophageal reflux disease): (4) CKD (chronic kidney disease), stage III: (5) Anxiety: (6) UTI (urinary tract infection): Plan 77-year-old presents with AMS that has been quite persistent. . Recent travel to [place]; had a nice trip visiting her daughter who lives there. No symptoms at that time. Does not appear toxic. No leukocytosis, No transaminitis, Procalcitonin, lactate unremarkable. Head CT today without acute intracranial disease process. CXR negative. ECHO 11/24/21: EF 55 to 60%, mild MR, mild TR, LV function normal. Denies vision or auditory changes, shortness of breath, chest pain, headache, nuchal rigidity or stiffness, no cough, no fever or chills, no rashes, dysphagia. Pt does not have fever, but if she would develop with headaches could consider empiric treatment for meningitis. Would revisit LP if no improvement. Altered mental status: Urinary tract infection: Was seen on 12/01/22 at urgent care started on Cipro Outpatient UA noted small esterase but urine culture did not report growth Head CT negative; No neuro deficits No leukocytosis, Lactate, Procalcitonin, and Troponin negative TSH is normal UA on presentation unremarkable Blood culture report Staph aureus in 1 of 2 bottles. Likely contaminant. Repeat blood cultures Send urine culture Continue ceftriaxone. Patient reports resolution of symptoms today Per H/P, there is recent increase of Trazodone dosing from 50 mg - 100 mg Continue to hold Trazodone and Alprazolam for now as possible contributing factors. Consider discontinue on discharge PDMP showed patient filled xanax 0.5mg (90 tabs for 30 days) on 08/13/22 and new 45 tabs of imybta-gwmt-ymszfdot on 11/24/22 Medications likely contributing to altered mental status as well Stop medications Prediabetes: Serum glucose 191 in ED HbA1c is 5.9 Dyslipidemia: Takes atorvastatin; continue GERD: Takes omeprazole; continue Anxiety: Alprazolam prn held as above. Consider stopping on discharge Disposition: PCP: Dr. Kohli Code Status: DNR/DNI VTE Prophylaxis: Lovenox SQ I spent a total of 50 minutes coordinating, documenting and providing care for this patient excluding time spent in performance of separately billed services Admission and Anticipated Discharge Date Admission Date: December 06, 2022 Subjective Patient seen and examined Reports dysuria and hematuria have resolved No confusion at this time Denied any other complaints Physical Exam Constitutional: + well hydrated; no acute distress Eyes: PERRL, conjunctivae normal, anicteric sclerae ENMT: external ear and nose normal, oropharynx normal Respiratory: normal respiratory effort, lungs clear to auscultation Cardiovascular: Rate/Rhythm: regular rate and regular rhythm S1 S2 Gastrointestinal (Abdomen): normal bowel sounds, soft, nontender, no hepatosplenomegaly Musculoskeletal: no cyanosis or clubbing, extremities motor strength 5/5 Neurologic: PERRL, EOMI, accommodation nl, no face palsy, no dysarthria Psychiatric: A+Ox3, euthymic affect Results & Data Results & Data Vital Signs (Past 12 Hours) Vital Signs Temp Pulse Pulse Resp BP BP Pulse Ox 12/07/22 11:02 36.6 C 63 18 123/67 97 12/07/22 08:15 12/07/22 07:41 52 L 12/07/22 07:05 36.7 C 55 L 18 139/77 96 12/07/22 06:00 36.5 C 60 20 152/84 H 97 12/07/22 03:28 36.6 C 57 L 16 133/74 96 O2 Del Method 12/07/22 11:02 Room Air 12/07/22 08:15 Room Air 12/07/22 07:41 12/07/22 07:05 Room Air 12/07/22 06:00 Room Air 12/07/22 03:28 Room Air Laboratory Results Abnormal lab results 12/06/22 12/06/22 12/06/22 Range/Units 12:10 12:10 13:40 Chloride (98-107) mmol/L BUN/Creatinine Ratio 22.1 H (10-20) Hemoglobin A1c (4.5-5.6) % Calcium (8.6-10.3) mg/dl Total Protein (6.0-8.3) gm/dl Globulin (2.5-4.0) gm/dl 25-OH Vitamin D Total 23.6 L (30-100) ng/ml Staphylococcus sp PCR DETECTED A (NotDetected) 07/11/23 07/11/23 Range/Units 06:39 06:39 Chloride 108 H (98-107) mmol/L BUN/Creatinine Ratio 21.4 H (10-20) Hemoglobin A1c 5.9 H (4.5-5.6) % Calcium 8.3 L (8.6-10.3) mg/dl Total Protein 5.9 L (6.0-8.3) gm/dl Globulin 2.1 L (2.5-4.0) gm/dl 25-OH Vitamin D Total (30-100) ng/ml Staphylococcus sp PCR (NotDetected) (1) Altered mental status Altered mental status type: unspecified Qualified Code(s): R41.82 - Altered mental status, unspecified
[2022-12-07] MEDS: cefTRIAXone SODIUM 2,000 MG in DEXTROSE 5% 50 ML IV SCH (16:31)
[2022-12-07] MEDS: ACETAMINOPHEN 325 MG TAB PO PRN (16:37)
[2022-12-07] MEDS: BUTALBITAL/ACETAMIN/CAFFEINE TAB PO PRN (20:35)
[2022-12-07] MEDS: ATORVASTATIN 40 MG TAB PO SCH (20:36)
[2022-12-07] MEDS ORDERED: MELATONIN 3 MG TAB PO SCH (21:00)
[2022-12-08 06:10] LABS: Hematocrit (blood only) 37.8 % (37.0-47.0); Hemoglobin 12.6 g/dl (12.0-16.0); Mean Corpuscular Hemoglobin 30.1 pg (25.0-34.0); Mean Corpuscular Hgb Conc 33.3 g/dL (32.0-36.0); Mean Corpuscular Volume 90.4 fL (80.0-100.0); Mean Platelet Volume 10.3 fL (9.4-12.4); Platelet Count 194 K/uL (130-400); RDW Coefficient of Variation 12.7 % (11.5-14.5); RDW Standard Deviation 42.5 fL (36.4-46.3); Red Blood Count 4.18 M/uL (4.20-5.40); White Blood Count 5.74 K/ul (4.8-10.8)
[2022-12-08 06:20] LABS: BUN Creatinine Ratio 22.4 (10-20); Calcium 8.6 mg/dl (8.6-10.3); Creatinine Clr Calc Pharmacy 55.2 ml/min; Est GFR (African American) 88.9 ml/min; Est GFR (Non-African American) 76.7 ml/min; Potassium 4.2 mmol/L (3.5-5.1)
[2022-12-08] MEDS: PANTOprazole 40 MG TAB PO SCH (07:53)
[2022-12-08] MEDS: CYANOCOBALAMIN (B-12) 500 MCG TABLET PO SCH (07:53)
[2022-12-08] MEDS: ENOXAPARIN INJ 40 MG/0.4 ML SYR SQ SCH (07:53)
[2022-12-08] MEDS: BUTALBITAL/ACETAMIN/CAFFEINE TAB PO PRN (10:17)
--- NOTE | 2022-12-08 13:00 | Discharge Summary ---
Date of Service December 08, 2022 Admission HPI Per Admitting Provider 77-year-old presents with altered mental status that has been quite persistent. Her stated that she has stated that she keeps 'searching' for things and 'just cant find things'. She describes feeling 'disconnected'. She is able to say that she doesn't feel right and can appreciate that. She has had some ambulatory dysfunction that started this morning. Her stated that she has not been sleeping well likely related to her UTI. No facial asymmetry, slurring speech. On Tuesday, they went to a wedding and went to a hunting camp and had a normal day. Recently seen in urgent care on 12/01 and being treated for UTI as she was having some with recent completion of Cipro; due to complete course on 12/08. Recent travel to [place]; had a nice trip visiting her daughter who lives there. No symptoms at that time. If imaging remains normal and symptoms persist, may consider an LP and also empiric coverage for meningitis. Patient hyperglycemic in ED; will obtain A1C and achs blood sugar checks. Suspect hyperglycemia related to cystitis. Patient does not appear toxic. No leukocytosis, No transaminitis, Procalcitonin, lactate unremarkable. Head CT today revealed No acute intracranial hemorrhage, no evidence of acute territorial infarction or other acute intracranial disease process. CXR negative for acute cardiopulmonary process. ECHO 11/24/21: EF 55 to 60%, mild MR, mild TR, LV function normal. Denies vision or auditory changes, shortness of breath, chest pain, headache, nuchal rigidity or stiffness, no cough, no fever or chills, no rashes, dysphagia. Denies tobacco or recreational drug use. Pt denies tobacco and recreational drug use. She does consume alcohol, last drink before starting Cipro which was 7 days ago. On examination, patient able to focus on numerous conversations between myself asking questions and the attending physician. Attending completed a full neurologic examination with no deficits as outlined below in the addendum. Patient will be admitted for further evaluation management. Please see H&P for further details Admission Exam Per Admitting Provider General:well developed and well nourished, non-toxic appearing, anxious Head:NC AT Eyes: PERRL, EOMI, anicteric sclera, no conjunctival injection, no nystagmus Nose:nares patent Mouth:MMM Neck:supple, trachea midline CV:RRR S1 S2 Pulm:CTA b/l Abd/GI:+ BS, soft, ND, no guarding. Tender to deep palpation in the suprapubic region. :No pollack or purewick Ext:no pretibial edema MSK:normal bulk and tone Neuro:Strength is 4+ throughout, symmetric in all 4 extremities. CN II-XII intact. Sensation intact. No significant dysmetria on finger to nose or heel to manjarrez testing. Psych:anxious Skin:visible skin is warm, dry, and without rash. Pt not fully undressed for exam. Principal Diagnosis AMS likely secondary to UTI versus increased neuropsychiatric medications doses versus both. UTI Discharge Exam GENERAL: Alert and oriented x3. NAD, on RA. HEENT: No pallor, no icterus. Pupils equal, round and reactive to light. Oral mucosa moist. NECK: No JVD, no neck masses. HEART: S1 and S2 heard. Regular rate and rhythm. No murmur, no gallop. RESPIRATORY SYSTEM: Normal AP diameter. No accessory muscle use. No wheezing, no crackles. ABDOMEN: Soft, bowel sounds present, nontender, no distention. CENTRAL NERVOUS SYSTEM: No facial droop. Speech is clear. Obeys simple commands. Moves extremities. EXTREMITIES: No edema, no erythema seen. Discharge Data Allergies Allergy/AdvReac Type Severity Reaction Status Date / Time aspirin AdvReac Intermediate Stomach Verified 04/10/21 01:08 problems and bleeding Consultations 12/06/22 15:13 ED Decision to Admit Stat Ordered Studies 12/06/22 13:19 CT head/brain wo con Stat Hospital Course (1) Altered mental status: (2) Dyslipidemia: (3) GERD (gastroesophageal reflux disease): (4) CKD (chronic kidney disease), stage III: (5) Anxiety: (6) UTI (urinary tract infection): Plan Per prior attending with addendum: 77-year-old presents with AMS that has been quite persistent. . Recent travel to [place]; had a nice trip visiting her daughter who lives there. No symptoms at that time. Does not appear toxic. No leukocytosis, No transaminitis, Procalcitonin, lactate unremarkable. Head CT today without acute intracranial disease process. CXR negative. ECHO 11/24/21: EF 55 to 60%, mild MR, mild TR, LV function normal. Denies vision or auditory changes, shortness of breath, chest pain, headache, nuchal rigidity or stiffness, no cough, no fever or chills, no rashes, dysphagia. Pt does not have fever, but if she would develop with headaches could consider empiric treatment for meningitis. Would revisit LP if no improvement. Altered mental status: Urinary tract infection: Was seen on 12/01/22 at urgent care started on Cipro Outpatient UA noted small esterase but urine culture did not report growth Head CT negative; No neuro deficits No leukocytosis, Lactate, Procalcitonin, and Troponin negative TSH is normal UA on presentation unremarkable Blood culture report Staph aureus in 1 of 2 bottles. Likely contaminant. Repeat blood cultures Send urine culture Continue ceftriaxone. Patient reports resolution of symptoms today Per H/P, there is recent increase of Trazodone dosing from 50 mg - 100 mg Continue to hold Trazodone and Alprazolam for now as possible contributing factors. Consider discontinue on discharge PDMP showed patient filled xanax 0.5mg (90 tabs for 30 days) on 08/13/22 and new 45 tabs of selxre-jwob-uaehnmhb on 11/24/22 Medications likely contributing to altered mental status as well Stop medications Prediabetes: Serum glucose 191 in ED HbA1c is 5.9 Dyslipidemia: Takes atorvastatin; continue GERD: Takes omeprazole; continue Anxiety: Alprazolam prn held as above. Consider stopping on discharge Disposition: PCP: Dr. Kohli Code Status: DNR/DNI VTE Prophylaxis: Lovenox SQ Addendum: Patient alert and oriented at bedside, complaining of chronic headache for which she takes Fioricet. Discussed regarding decreasing her alprazolam dose to once a day as needed for anxiety and replacing trazodone with melatonin to avoid creating altered mental status in future. Patient agreeable. Patient to complete her antibiotic course as prescribed upon discharge. Patient denies any pain or burning while passing urine now. She reports feeling better and would like to go home. She is hemodynamically stable. She is being discharged to home with following instruction at the point of discharge: Follow-up with your primary care physician within a week time and likely you will need labs CBC/CMP/magnesium/phosphorus. Complete the course of the antibiotic as prescribed for your UTI. As discussed at the bedside, advise to decrease the dose of alprazolam to once a day as needed for anxiety and advise to use melatonin instead of trazodone in the night. You can buy melatonin [id number], you can take 5 mg tablet 3 hours prior to your expected sleep time. Please make sure that you are able to get your medications today by calling your pharmacy before you leave the hospital so that your treatment continuity is not broken. Home Health Attestation I certify that this patient is under my care and that I, or a physicians assistant professor of life sciences working with me, had a face to-face encounter that meets the home health egnc-[id number] encounter requirements with this patient. The encounter with the patient was in whole, or in part, for the following medical condition, which is the primary reason for home health care (list medical condition): I certify that, based on my findings, the following services are medically necessary home health services: My clinical findings support the need for the above services because: Further, I certify that my clinical findings support that this patient is homebound (i.e. absences from home require considerable and taxing effort and are for medical reasons or jain services or infrequently or of short duration when for other reasons) because: Certification for Home Health Services: Based on the above findings, I certify that this patient is confined to the home and needs intermittent longterm care, physical therapy and/or speech therapy or continues to need occupational therapy. The patient is under my care, and I have initiated the establishment of the plan of care. This patient will be followed by a physician who will periodically review the plan of care. Total Time Total Time Spent Total Time Spent (In Minutes): 45 Discharge Plan Discharge Items Patient Disposition: Home - Self-Care Reason For Visit: ALTERED MENTAL STATUS Discharge Diagnosis: AMS likely secondary to UTI versus increased neuropsychiatric medications doses versus both. UTI Activity: Resume your previous activity Non-emergency contact: Primary Care Provider Call non-emergency contact if: you have any medication questions Follow-up/Referrals: Remedios Kohli DO [Primary Care Provider] - Diet: Heart Healthy Diet Texture: Easy to Chew Addtl Attending Provider Instructions: Follow-up with your primary care physician within a week time and likely you will need labs CBC/CMP/magnesium/phosphorus. Complete the course of the antibiotic as prescribed for your UTI. As discussed at the bedside, advise to decrease the dose of alprazolam to once a day as needed for anxiety and advise to use melatonin instead of trazodone in the night. You can buy melatonin [id number], you can take 5 mg tablet 3 hours prior to your expected sleep time. Please make sure that you are able to get your medications today by calling your pharmacy before you leave the hospital so that your treatment continuity is not broken. Pending Studies at Discharge: Yes Stand-Alone Forms: My [facility], Smoking Cessation Medications and DC Order Prescriptions: New cefdinir 300 mg capsule 300 mg PO BID 4 Days Qty: 8 0RF Continued atorvastatin 40 mg tablet 40 mg PO HS omeprazole 20 mg capsule,delayed release(DR/EC) 20 mg PO BIDM bgmpzwxwon-zpmmfhsccecee-zfwn 50-325-40 mg tablet 1 tab PO Q6H PRN (Reason: Headache) cyanocobalamin (vitamin B-12) 500 mcg Tablet 1,000 mcg PO QAM Qty: 30 0RF Changed alprazolam 0.25 mg tablet 0.25 mg PO DAILY PRN (Reason: Anxiety) 5 Days Qty: 5 0RF Discontinued trazodone 100 mg Tablet 100 mg PO HS Discharge Orders: Discharge Order (Routine); Ordered 12/08/22 Ordered By: Tracy Germain Admission Data Admit Date/Time: 12/06/22 15:18 Attending Provider: Tracy Germain Admit Provider: Jewell Yin Primary Care Provider: Remedios Kohli Other Providers: Jewell Yin
[2022-12-08] MEDS: cefTRIAXone SODIUM 2,000 MG in DEXTROSE 5% 50 ML IV SCH (13:57)
== END 2022-12-08 15:09 | disposition home or self-care (01) | DRG 690 ==
LOC: ED 11:54 → 2N 15:18 → SUATTDRO 15:18 → 2N 16:40